=== PATIENT | male | born 1950 | race Caucasian/White ===

== ENCOUNTER 2016-11-01 08:03 | Outpatient (CLI) | payer MEDICARE ==
[2016-11-01 12:44] LABS: #Basophils 0.1 thou/uL (0.0-0.2); #Eosinphils 0.2 thou/uL (0.0-0.7); #Lymphocytes 1.3 thou/uL (1.20-3.40); #Monocytes 0.4 thou/uL (0.11-0.59); #Neutrophils 2.4 thou/uL (1.40-6.50); %Basophils 1.6 % (0.0-1.0); %Eosinophils 4.5 % (0.0-10.0); %Lymphocytes 29.9 % (21.0-51.0); Hematocrit 41.1 % (42.0-52.0); Mean Platelet Volume 5.9 fL (7.4-10.4); Red Blood Cell (RBC) Count 4.21 mill/uL (4.70-6.10); White Blood Cell (WBC) Count 4.4 thou/uL (4.8-10.8)
[2016-11-01 12:59] LABS: ALT (SGPT) 16 U/L (0-55); AST (SGOT) 21 U/L (5-34); Alkaline Phosphatase 53 U/L (40-150); Anion Gap 18 mmol/L (10-20); BUN (Urea Nitrogen) 10 mg/dL (8.4-25.7); Bilirubin, Direct 0.2 mg/dL (0.1-0.3); Bilirubin, Total 0.6 mg/dL (0.2-1.2); Calc. Creatinine Clearance 0 mL/min (70-130); Calcium 9.1 mg/dL (7.8-10.44); Carbon Dioxide 23 mmol/L (23-31); Chloride 98 mmol/L (98-107); Estimated GFR-MDRD Greater than 90; LDL Cholesterol, Calculated 123 mg/dL; Protein, Total 7.1 g/dL (5.8-8.1)
== END 2016-11-01 08:04 ==
LOC: NAVSJIPCSP 08:03
PROVIDERS: ATTEND Family Medicine
DX: J30.9 Allergic rhinitis, unspecified (principal); J32.9 Chronic sinusitis, unspecified; G62.9 Polyneuropathy, unspecified; I10 Essential (primary) hypertension; R25.1 Tremor, unspecified; Z79.899 Other long term (current) drug therapy
CPT/HCPCS: 36415; 80048; 80061; 80076; 83036; 84443; 85025

== ENCOUNTER 2017-03-05 09:19 | Outpatient (CLI) | payer MEDICARE ==
[2017-03-05 12:01] LABS: #Basophils 0.1 thou/uL (0.0-0.2); #Eosinphils 0.3 thou/uL (0.0-0.7); #Lymphocytes 1.3 thou/uL (1.20-3.40); #Monocytes 0.4 thou/uL (0.11-0.59); #Neutrophils 3.9 thou/uL (1.40-6.50); %Basophils 0.9 % (0.0-1.0); %Eosinophils 4.8 % (0.0-10.0); %Lymphocytes 21.5 % (21.0-51.0); %Monocytes 6.6 % (0.0-10.0); %Neutrophils 66.2 % (42.0-75.0); Hemoglobin 14.2 g/dL (14.0-18.0); Mean Corpuscular HGB CONC 33.4 g/dL (32.0-36.0); Mean Corpuscular Hemoglobin 32.2 pg (27.0-31.0); Mean Corpuscular Volume 96.7 fl (80.0-94.0); Mean Platelet Volume 5.5 fL (7.4-10.4); Platelet Count 227 thou/uL (130-400); RBC Distribution Width 12.6 % (11.5-14.5); Red Blood Cell (RBC) Count 4.41 mill/uL (4.70-6.10); White Blood Cell (WBC) Count 5.9 thou/uL (4.8-10.8)
[2017-03-05 12:53] LABS: Thyroid Stimulating Hormone 1.9849 uIU/mL (0.35-4.94)
[2017-03-05 13:08] LABS: ALT (SGPT) 14 U/L (8-55); AST (SGOT) 18 U/L (5-34); Albumin 4.2 g/dL (3.4-4.8); Alkaline Phosphatase 60 U/L (40-150); Anion Gap 17 mmol/L (10-20); BUN (Urea Nitrogen) 10 mg/dL (8.4-25.7); Bilirubin, Direct 0.2 mg/dL (0.1-0.3); Bilirubin, Total 0.7 mg/dL (0.2-1.2); Calc. Creatinine Clearance 0 mL/min (70-130); Carbon Dioxide 24 mmol/L (23-31); Cardiac Risk 3.5 (Less than 4.5); Chloride 101 mmol/L (98-107); Cholesterol 195 mg/dl (< 200 Desired); Estimated GFR-MDRD Greater than 90; Glucose 83 mg/dL (80-115); HDL Cholesterol 55 mg/dL (>60 Neg Risk); LDL Cholesterol, Calculated 119 mg/dL; Potassium 4.3 mmol/L (3.5-5.1); Protein, Total 6.7 g/dL (5.8-8.1); Sodium 138 mmol/L (136-145); Triglycerides 107 mg/dL (Less than 150)
[2017-03-05 18:07] LABS: Hep C IgG Ab Non-Reactive (NonReactive); Hep C Index 0.14 S/CO (0-0.79)
== END 2017-03-05 09:20 | disposition home or self-care (01) ==
LOC: NAVSJIPCSP 09:19
PROVIDERS: ATTEND Family Medicine
DX: G62.9 Polyneuropathy, unspecified (principal); I10 Essential (primary) hypertension; J30.9 Allergic rhinitis, unspecified; K30 Functional dyspepsia; R25.1 Tremor, unspecified; Z79.899 Other long term (current) drug therapy
CPT/HCPCS: 36415; 80048; 80061; 80076; 83036; 84443; 85025; 86803

== ENCOUNTER 2017-06-11 16:46 | Emergency (ER) | payer MEDICARE ==
--- NOTE | 2017-06-11 20:14 | RAD ---
TWO VIEWS LEFT TIBIA AND FIBULA: 06/11/17 HISTORY: 66-year-old with history of swelling left lower leg after fall. AP and lateral views of the left tibia and fibula demonstrates a left knee arthroplasty. No evidence of fractures, subluxations, or bony lesions seen. IMPRESSION: Unremarkable AP and lateral views left tibia and fibula. There does appear to be anterior soft tissu e mid tibial hematoma present. POS: [facility]
== END 2017-06-11 18:08 | disposition home or self-care (01) ==
LOC: NAV ERS 16:46
DX: S80.12XA Contusion of left lower leg, initial encounter (principal); M54.9 Dorsalgia, unspecified; G89.29 Other chronic pain; I10 Essential (primary) hypertension; Z79.899 Other long term (current) drug therapy; Z96.652 Presence of left artificial knee joint; Z96.642 Presence of left artificial hip joint; W01.198A Fall on same level from slipping, tripping and stumbling with subsequent striking against other object, initial encounter

== ENCOUNTER 2018-07-29 08:08 | Outpatient (CLI) | payer MEDICARE ==
[2018-07-29 11:52] LABS: %Lymphocytes 34.5 % (21.0-51.0); Hemoglobin 12.3 g/dL (14.0-18.0); Mean Corpuscular HGB CONC 33.9 g/dL (32.0-36.0); Mean Corpuscular Hemoglobin 32.2 pg (27.0-31.0); Mean Platelet Volume 5.6 fL (7.4-10.4); Platelet Count 332 thou/uL (130-400); RBC Distribution Width 13.2 % (11.5-14.5); Red Blood Cell (RBC) Count 3.83 mill/uL (4.70-6.10); White Blood Cell (WBC) Count 9.2 thou/uL (4.8-10.8)
[2018-07-29 11:53] LABS: #Basophils 0.1 thou/uL (0.0-0.2); #Eosinphils 0.1 thou/uL (0.0-0.7); #Lymphocytes 3.2 thou/uL (1.20-3.40); #Monocytes 0.6 thou/uL (0.11-0.59); #Neutrophils 5.3 thou/uL (1.40-6.50); %Basophils 0.7 % (0.0-1.0); %Eosinophils 0.9 % (0.0-10.0)
== END 2018-07-29 08:09 | disposition home or self-care (01) ==
LOC: NAV LAB 08:08
PROVIDERS: ATTEND Family Medicine
DX: J01.10 Acute frontal sinusitis, unspecified (principal)
CPT/HCPCS: 85025

== ENCOUNTER 2019-04-29 10:31 | Outpatient (CLI) | payer MEDICARE ==
--- NOTE | 2019-04-29 12:37 | RAD ---
LUMBAR SPINE 4 VIEWS: Date: 04/29/19 HISTORY: Lumbar degenerative disc disease. Low back pain. FINDINGS: Lateral views obtained in neutral, flexion, and extension position. Moderate degenerative changes lumbar spine. Degenerative disc changes at all levels. The disc narrowi ng is most prominent at L5-S1 and at the L2-3 level. Facet hypertrophy is seen throughout. Osteophyte s lumbar vertebra. Slight posterolisthesis at L2-3. No change in alignment with flexion or extension. IMPRESSION: There are moderate degenerative changes of the lumbar spine as described. POS: OFF
== END 2019-04-29 10:32 | disposition home or self-care (01) ==
LOC: NAV RAD 10:31
PROVIDERS: ATTEND Nurse Practitioner Family
DX: M51.36 Other intervertebral disc degeneration, lumbar region (principal); M47.816 Spondylosis without myelopathy or radiculopathy, lumbar region
CPT/HCPCS: 72120

== ENCOUNTER 2019-09-17 03:18 | Emergency (ER) | payer MEDICARE ==
[2019-09-17 03:45] LABS: #Basophils 0.1 thou/uL (0.0-0.2); #Eosinphils 0.1 thou/uL (0.0-0.7); #Lymphocytes 1.6 thou/uL (1.20-3.40); #Monocytes 0.7 thou/uL (0.11-0.59); #Neutrophils 6.3 thou/uL (1.40-6.50); %Basophils 0.8 % (0.0-1.0); %Eosinophils 1.5 % (0.0-10.0); %Lymphocytes 17.9 % (21.0-51.0); %Monocytes 7.6 % (0.0-10.0); %Neutrophils 72.2 % (42.0-75.0); Hemoglobin 11.5 g/dL (14.0-18.0); Mean Corpuscular HGB CONC 33.9 g/dL (32.0-36.0); Mean Corpuscular Hemoglobin 31.8 pg (27.0-31.0); Mean Corpuscular Volume 93.7 fL (78.0-98.0); Mean Platelet Volume 5.7 fL (7.4-10.4); Platelet Count 412 thou/uL (130-400); RBC Distribution Width 11.7 % (11.5-14.5); Red Blood Cell (RBC) Count 3.61 mill/uL (4.70-6.10); White Blood Cell (WBC) Count 8.8 thou/uL (4.8-10.8)
[2019-09-17 03:55] LABS: ALT (SGPT) 22 U/L (8-55); AST (SGOT) 19 U/L (5-34); Albumin 4.2 g/dL (3.4-4.8); Alkaline Phosphatase 57 U/L (40-110); Anion Gap 16 mmol/L (10-20); BUN (Urea Nitrogen) 11 mg/dL (8.4-25.7); Bilirubin, Total 0.3 mg/dL (0.2-1.2); Calc. Creatinine Clearance 0 mL/min (70-130); Calcium 10.1 mg/dL (7.8-10.44); Carbon Dioxide 26 mmol/L (23-31); Chloride 87 mmol/L (98-107); Estimated GFR-MDRD Greater than 90; Globulin 2.5 g/dL (2.4-3.5); Glucose 95 mg/dL (80-115); Protein, Total 6.7 g/dL (5.8-8.1); Sodium 125 mmol/L (136-145)
[2019-09-17] MEDS ORDERED: Enoxaparin Sodium 80 MG/0.8 ML SYRINGE ONE (04:03)
[2019-09-17] MEDS ORDERED: Morphine 4 MG/ML VIAL ONE (04:14)
[2019-09-17] MEDS ORDERED: Pantoprazole 40 MG VIAL ONE (04:15)
--- NOTE | 2019-09-17 08:47 | RAD ---
CHEST 1 VIEW: HISTORY: Abdominal pain and bloating for 5 days. COMPARISON: 08/11/2018. FINDINGS: Minimal stable increased markings bilaterally with slight blunting of the left costophrenic angle. O ld granulomatous disease. No confluent pneumonia, overt edema, or pleural effusion. IMPRESSION: Stable chronic changes. POS: OFF
== END 2019-09-17 04:33 | disposition short-term general hospital (02) ==
LOC: NAV ERS 03:18
DX: I24.9 Acute ischemic heart disease, unspecified (principal); I10 Essential (primary) hypertension; Z79.899 Other long term (current) drug therapy; Z79.52 Long term (current) use of systemic steroids
CPT/HCPCS: 71045; 80053; 83880; 84484; 85025; 93005; 94760; 96372; 96374; 96375; C9113; J1650; J2270

== ENCOUNTER 2019-12-03 01:37 | Emergency (ER) | payer MEDICARE ==
[2019-12-03 02:29] LABS: #Basophils 0.1 thou/uL (0.0-0.2); #Eosinphils 0.1 thou/uL (0.0-0.7); #Lymphocytes 1.8 thou/uL (1.20-3.40); #Monocytes 0.3 thou/uL (0.11-0.59); #Neutrophils 1.9 thou/uL (1.40-6.50); %Basophils 2.5 % (0.0-1.0); %Eosinophils 2.9 % (0.0-10.0); %Lymphocytes 42.8 % (21.0-51.0); %Monocytes 7.8 % (0.0-10.0); %Neutrophils 44.1 % (42.0-75.0); ALT (SGPT) 16 U/L (8-55); AST (SGOT) 20 U/L (5-34); Albumin 3.4 g/dL (3.4-4.8); Alkaline Phosphatase 63 U/L (40-110); Anion Gap 15 mmol/L (10-20); BUN (Urea Nitrogen) 6 mg/dL (8.4-25.7); Bilirubin, Total 0.2 mg/dL (0.2-1.2); Calc. Creatinine Clearance 0 mL/min (70-130); Calcium 8.1 mg/dL (7.8-10.44); Carbon Dioxide 28 mmol/L (23-31); Chloride 92 mmol/L (98-107); Estimated GFR-MDRD Greater than 90; Globulin 2.5 g/dL (2.4-3.5); Glucose 90 mg/dL (83-110); Hemoglobin 9.1 g/dL (14.0-18.0); Mean Corpuscular HGB CONC 31.6 g/dL (32.0-36.0); Mean Corpuscular Volume 88.7 fL (78.0-98.0); Mean Platelet Volume 5.8 fL (7.4-10.4); Platelet Count 318 thou/uL (130-400); Potassium 3.7 mmol/L (3.5-5.1); Protein, Total 5.9 g/dL (5.8-8.1); RBC Distribution Width 13.5 % (11.5-14.5); Red Blood Cell (RBC) Count 3.26 mill/uL (4.70-6.10); Sodium 131 mmol/L (136-145); White Blood Cell (WBC) Count 4.2 thou/uL (4.8-10.8)
[2019-12-03] MEDS ORDERED: Aspirin Chewable 81 MG TAB ONE (02:40)
[2019-12-03 02:49] LABS: CKMB 0.6 ng/mL (0-6.6)
--- NOTE | 2019-12-03 07:46 | RAD ---
RADIOGRAPH CHEST 1 VIEW: HISTORY: A 69-year-old male with chest pain, chest tightness. FINDINGS: There are no air space densities, pulmonary edema, pneumothorax, or cardiomegaly. The lateral costop hrenic angles are sharp. IMPRESSION: No acute cardiopulmonary findings. jn [] POS: JIN
== END 2019-12-03 03:04 | disposition home or self-care (01) ==
LOC: NAV ERS 01:37
DX: R07.9 Chest pain, unspecified (principal); I10 Essential (primary) hypertension; I25.2 Old myocardial infarction; Z79.899 Other long term (current) drug therapy
CPT/HCPCS: 36415; 71045; 80053; 82553; 83880; 84484; 85025; 93005; 94760

== ENCOUNTER 2020-01-25 16:42 | Inpatient (IN) | payer MEDICARE ==
[2020-01-25] MEDS: Sucralfate 1 GM TAB PO SCH (20:30)
[2020-01-25] MEDS: HYDROcodone/Acetaminophen 5/325 mg Tablet PO PRN (20:31)
[2020-01-25] MEDS: Atorvastatin Calcium 40 MG TAB PO SCH (20:33)
[2020-01-25] MEDS: Dicyclomine 10 MG CAP PO SCH (20:33)
[2020-01-25] MEDS: Carvedilol 25 MG TAB PO SCH (20:33)
[2020-01-26] MEDS: HYDROcodone/Acetaminophen 5/325 mg Tablet PO PRN ×3 (02:17→18:30)
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
[2020-01-26 05:53] LABS: #Basophils 0.1 thou/uL (0.0-0.2); #Eosinphils 0.6 thou/uL (0.0-0.7); #Lymphocytes 1.2 thou/uL (1.20-3.40); #Monocytes 0.5 thou/uL (0.11-0.59); #Neutrophils 4.9 thou/uL (1.40-6.50); %Basophils 1.3 % (0.0-1.0); %Eosinophils 8.2 % (0.0-10.0); %Lymphocytes 16.8 % (21.0-51.0); %Monocytes 7.1 % (0.0-10.0); %Neutrophils 66.6 % (42.0-75.0); Hemoglobin 8.4 g/dL (14.0-18.0); Hypochromia SLIGHT = 6-15 cells (100X) (0-5/hpf); MDiff Complete? YES; Mean Corpuscular HGB CONC 30.8 g/dL (32.0-36.0); Mean Corpuscular Hemoglobin 28.1 pg (27.0-31.0); Mean Corpuscular Volume 91.3 fL (78.0-98.0); Mean Platelet Volume 6.4 fL (7.4-10.4); Platelet Count 397 thou/uL (130-400); Poikilocytosis MODERATE=16-30 cells (100X) (0-5/hpf); RBC Distribution Width 20.6 % (11.5-14.5); Red Blood Cell (RBC) Count 2.97 mill/uL (4.70-6.10); Target Cells SLIGHT = 2-5 cells (100X) (0-1/hpf); White Blood Cell (WBC) Count 7.4 thou/uL (4.8-10.8)
[2020-01-26 06:01] LABS: ALT (SGPT) 23 U/L (8-55); AST (SGOT) 20 U/L (5-34); Albumin 2.5 g/dL (3.4-4.8); Alkaline Phosphatase 241 U/L (40-110); Anion Gap 15 mmol/L (10-20); BUN (Urea Nitrogen) 27 mg/dL (8.4-25.7); Bilirubin, Total 0.5 mg/dL (0.2-1.2); Calc. Creatinine Clearance 137 mL/min (70-130); Calcium 8.1 mg/dL (7.8-10.44); Carbon Dioxide 21 mmol/L (23-31); Chloride 105 mmol/L (98-107); Estimated GFR-MDRD Greater than 90; Globulin 3.3 g/dL (2.4-3.5); Glucose 101 mg/dL (83-110); Potassium 4.1 mmol/L (3.5-5.1); Protein, Total 5.8 g/dL (5.8-8.1); Sodium 137 mmol/L (136-145)
[2020-01-26] MEDS: Carvedilol 25 MG TAB PO SCH ×2 (08:26→21:12)
[2020-01-26] MEDS: Lisinopril 5 MG TAB PO SCH (08:26)
[2020-01-26] MEDS: Pantoprazole 40 MG GRANULES PACKET PO SCH ×2 (08:26→21:13)
[2020-01-26] MEDS: Sucralfate 1 GM TAB PO SCH ×3 (08:26→21:12)
[2020-01-26] MEDS: Dicyclomine 10 MG CAP PO SCH ×3 (08:27→21:12)
[2020-01-26] MEDS: Furosemide 20 MG TAB PO SCH (08:27)
[2020-01-26 09:35] LABS: Bilirubin Negative (Negative); Blood, Urine Negative (Negative); Clarity Clear (Clear); Glucose, Urine (Dipstick) Negative (Negative); Leukocyte Negative (Negative); Nitrite Negative (Negative); Protein, Urine (Dipstick) Negative (Neg-Trace)
[2020-01-26 10:25] LABS: Bacteria/HPF None Seen HPF (None Seen); RBC/HPF 0-3 HPF (0-3); WBC/HPF 0-3 HPF (0-3)
[2020-01-26] MEDS: FAT EMULSION IV SCH (14:40)
[2020-01-26] MEDS: [UNRECOGNIZED DRUG - OTHER] IV SCH (14:40)
[2020-01-26] MEDS: SODIUM ACETATE IV SCH (14:40)
[2020-01-26] MEDS: SODIUM CHLORIDE IV SCH (14:40)
--- NOTE | 2020-01-26 19:48 | PRG ---
DATE OF SERVICE: This is a 69-year-old white male, who was transferred to [facility] after being in the hospital approximately 1 to 2 months at [place]. The patient was transferred here after multiple problems with abdominal pain with perforated viscus, CPR secondary to asystole, multiple rib fractures secondary to CPR with pneumothorax, and inability to absorb food through his jejunostomy tube. The patient is transferred here on TPN to increase his strength and stamina, so he can undergo in 3 to 4 months a gastric outlet obstruction surgery to repair that problem. SUBJECTIVE: The patient states he is actually doing very well and feeling better. He would like to have something to eat, but he knows his TPN is what he is going to have. he is swallowing some pills. OBJECTIVE: VITAL SIGNS: Today reveal blood pressure this morning 111/60, pulse 82 to 84, respirations 18 to 20, O2 saturation 96% on room air, and T-max 98.1. GENERAL: This is a well-developed, well-nourished, pleasant white male, in no apparent distress at this time. HEENT: Reveals normocephalic and nontraumatic cranium. Pupils are equally round and reactive. Extraocular movements are intact. Nose and throat are slightly dry. NECK: Supple without masses, nodes, or bruits. CHEST: Clear to auscultation. Stout catheter noted in the right upper chest wall. HEART: Reveals a regular rate and rhythm without murmurs, gallops, or rubs. ABDOMEN: Soft. Jejunostomy tube, which is capped, is in the lower left quadrant. Kramer catheter still in place. Normal bowel sounds are noted. No rebound or guarding is noted today. No CVA tenderness is noted. : Reveals Kramer catheter in place. EXTREMITIES: Reveal no clubbing, cyanosis, or edema. ASSESSMENT: 1. Multiple recent surgeries with poor oral intake and gastric outlet obstruction resulting in significant weight loss and severe malnutrition. 2. Hypertension. 3. History of coronary artery disease. 4. Diffuse diverticulosis with extremely friable bowel. 5. Low back pain, long term acute care registered nurse. 6. Allergic rhinitis. 7. Neuropathy. 8. Anxiety and depressive disorder. 9. Arthritis. 10. Status post CPR with five fractured ribs and pneumothorax. 11. Generalized weakness. 12. Multiple procedures. PLAN: 1. Continue to supply the patient with current TPN. 2. Continue wound care with irrigating wound VAC. 3. No oral intake at this time. 4. No enteral nutrition through his jejunostomy tube and it should not be started. 5. Appointment with Dr. Lema in approximately 3 weeks. 6. Continue present course of therapy 3 to 4 months from recent surgery, then possibly address his gastric outlet obstruction with surgery. 7. Continue to follow closely. Job ID: [id number]
[2020-01-26] MEDS: Atorvastatin Calcium 40 MG TAB PO SCH (21:12)
[2020-01-27] MEDS: HYDROcodone/Acetaminophen 5/325 mg Tablet PO PRN ×4 (04:12→23:50)
[2020-01-27 06:01] LABS: ALT (SGPT) 22 U/L (8-55); AST (SGOT) 23 U/L (5-34); Albumin 2.5 g/dL (3.4-4.8); Alkaline Phosphatase 237 U/L (40-110); Anion Gap 13 mmol/L (10-20); BUN (Urea Nitrogen) 31 mg/dL (8.4-25.7); Bilirubin, Total 0.6 mg/dL (0.2-1.2); Calc. Creatinine Clearance 122 mL/min (70-130); Carbon Dioxide 23 mmol/L (23-31); Chloride 105 mmol/L (98-107); Estimated GFR-MDRD Greater than 90; Globulin 3.3 g/dL (2.4-3.5); Glucose 119 mg/dL (83-110); Magnesium 1.8 mg/dL (1.6-2.6); Phosphorus 4.5 mg/dL (2.3-4.7); Potassium 3.9 mmol/L (3.5-5.1); Protein, Total 5.8 g/dL (5.8-8.1); Sodium 137 mmol/L (136-145)
[2020-01-27 06:05] LABS: #Basophils 0.1 thou/uL (0.0-0.2); #Eosinphils 0.8 thou/uL (0.0-0.7); #Lymphocytes 0.8 thou/uL (1.20-3.40); #Monocytes 0.4 thou/uL (0.11-0.59); #Neutrophils 5.8 thou/uL (1.40-6.50); %Lymphocytes 10.8 % (21.0-51.0); %Monocytes 4.7 % (0.0-10.0); %Neutrophils 73.5 % (42.0-75.0); Hypochromia SLIGHT = 6-15 cells (100X) (0-5/hpf); MDiff Complete? YES; Mean Corpuscular HGB CONC 30.7 g/dL (32.0-36.0); Mean Corpuscular Hemoglobin 27.9 pg (27.0-31.0); Mean Corpuscular Volume 90.9 fL (78.0-98.0); Mean Platelet Volume 6.4 fL (7.4-10.4); Ovalocytes MODERATE= 6-15 cells (100X) (0-1/hpf); Platelet Count 395 thou/uL (130-400); Platelet Morphology Comment Appears Increased; RBC Distribution Width 20.1 % (11.5-14.5); Red Blood Cell (RBC) Count 2.87 mill/uL (4.70-6.10); Stomatocytes SLIGHT = 2-5 cells (100X) (0-1/hpf); Target Cells SLIGHT = 2-5 cells (100X) (0-1/hpf); Tear Drops SLIGHT = 2-5 cells (100X) (0-1/hpf); White Blood Cell (WBC) Count 7.8 thou/uL (4.8-10.8)
[2020-01-27] MEDS: Dicyclomine 10 MG CAP PO SCH ×3 (09:10→20:51)
[2020-01-27] MEDS: Sucralfate 1 GM TAB PO SCH ×3 (09:10→20:52)
[2020-01-27] MEDS: Furosemide 20 MG TAB PO SCH (09:11)
[2020-01-27] MEDS: Pantoprazole 40 MG GRANULES PACKET PO SCH ×2 (09:11→20:52)
[2020-01-27] MEDS: Lisinopril 5 MG TAB PO SCH (09:11)
[2020-01-27] MEDS: Carvedilol 25 MG TAB PO SCH ×2 (09:11→20:51)
[2020-01-27] MEDS: SODIUM CHLORIDE IV SCH (14:28)
[2020-01-27] MEDS: [UNRECOGNIZED DRUG - OTHER] IV SCH (14:28)
[2020-01-27] MEDS: SODIUM ACETATE IV SCH (14:28)
[2020-01-27] MEDS: FAT EMULSION IV SCH (14:28)
[2020-01-27] MEDS ORDERED: Sodium Chloride 0.9% 10 ML ONE (14:38)
--- NOTE | 2020-01-27 20:50 | PRG ---
DATE OF SERVICE: 01/27/2020 Mr. Hillman is a 69-year-old white male, who presented to the hospital 1 to 2 months ago with multiple problems including abdominal pain and perforated viscus. He was taken to surgical suite and had surgery done and in postop, had asystole and CPR, which fractured multiple ribs secondary to CPR. He developed a pneumothorax and was unable to absorb jejunostomy feeding tube. Eventually, had TPN, Stout catheter placed and TPN was started. This to increase his strength and stamina. He is transferred here because of gastric outlet obstruction and unable to keep any foods down. He is here for physical therapy and occupational therapy and nutritional encouragement. SUBJECTIVE: The patient states he felt a lot better today than did yesterday, but he was kind of puny and weak this morning. He is only able to stand for one time and then had to sit down. The rest time, he has been in the wheelchair, wheeling himself around, which is much improved over previously. OBJECTIVE: VITAL SIGNS: Today reveal blood pressure 105/57, pulse 81 to 84, respirations 20, O2 saturation 96% to 97% on room air, and T-max 97.6. GENERAL: This is a well-developed, very thin white male, in no apparent distress at this time. He is actually much more alert and talkative and feeling better. HEENT: Reveals normocephalic and nontraumatic cranium. Pupils are equally round and reactive. Extraocular movements are intact. Nose and throat are slightly moist today. NECK: Supple without masses, nodes, or bruits. CHEST: Clear to auscultation. Stout catheter in right upper chest wall is noted. No rales, rhonchi, wheezes, or cough is noted. HEART: Reveals a regular rate and rhythm without murmurs, gallops, or rubs. ABDOMEN: Soft, scaphoid, nontender without organomegaly. Normal bowel sounds are noted in all 4 quadrants. No rebound or guarding is noted. Jejunostomy tube is noted in the left lower quadrant. GENITOURINARY: Deferred except for Kramer catheter noted in place. EXTREMITIES: Reveal no clubbing, cyanosis, or edema. ASSESSMENT: 1. Multiple surgeries with poor nutritional status and severe malnutrition, couple of gastric outlet obstruction. 2. Hypertension. 3. History of coronary artery disease. 4. Diffuse diverticulosis with extremely friable bowel. 5. Low back pain, long-term. 6. Allergic rhinitis. 7. Neuropathy. 8. Anxiety and depressive disorder. 9. Arthritis. 10. Status post CPR with five fractured ribs and pneumothorax. 11. Generalized weakness. 12. Multiple procedures. PLAN: 1. Continue to supply the patient with current TPN. 2. Continue wound care with irrigating wound VAC. 3. No oral intake is noted at this time. 4. No enteral nutrition through his jejunostomy tube and it should not be started. 5. Follow up with Dr. Lema in about 3 weeks, which is about February 16 or the end of the month. 6. Continue present course of therapy 3 to 4 months from recent surgery with possible addressing his gastric outlet obstruction with surgery at that time. 7. Continue to follow closely. 8. The patient's lab today was stable or slightly improved. Job ID: [id number]
[2020-01-27] MEDS: Atorvastatin Calcium 40 MG TAB PO SCH (20:52)
[2020-01-28] MEDS: Ondansetron ODT 4 MG TAB PO PRN (00:10)
[2020-01-28] MEDS: Sucralfate 1 GM TAB PO SCH ×3 (08:41→20:44)
[2020-01-28] MEDS: Carvedilol 25 MG TAB PO SCH ×2 (08:41→20:45)
[2020-01-28] MEDS: Dicyclomine 10 MG CAP PO SCH ×3 (08:41→20:44)
[2020-01-28] MEDS: Lisinopril 5 MG TAB PO SCH (08:41)
[2020-01-28] MEDS: Furosemide 20 MG TAB PO SCH (08:42)
[2020-01-28] MEDS: Pantoprazole 40 MG GRANULES PACKET PO SCH ×2 (08:42→20:45)
[2020-01-28] MEDS: HYDROcodone/Acetaminophen 5/325 mg Tablet PO PRN ×3 (09:27→22:34)
[2020-01-28] MEDS: FAT EMULSION IV SCH (14:12)
[2020-01-28] MEDS: SODIUM CHLORIDE IV SCH (14:12)
[2020-01-28] MEDS: [UNRECOGNIZED DRUG - OTHER] IV SCH (14:12)
[2020-01-28] MEDS: SODIUM ACETATE IV SCH (14:12)
[2020-01-28] MEDS: Atorvastatin Calcium 40 MG TAB PO SCH (20:44)
--- NOTE | 2020-01-28 21:30 | PRG ---
DATE OF SERVICE: 01/27/2020 SUBJECTIVE: Mr. Hillman is a well-developed, well-nourished 69-year-old white male, who presented to the hospital one or two months ago with multiple problems including abdominal pain and perforated viscus. He was taken to surgical suite and had surgery done and postoperatively had asystole and CPR with fractured ribs and he developed pneumothorax. He developed significant malnutrition and poor healing and had to have a jejunostomy tube done, which he did not tolerate well. Eventually, he had to be taken back to surgery because of the gastric outlet obstruction, but he is unable to have significant surgery for that because of the friability of his intestines. Eventually, he was stabilized and transferred to inpatient therapy to skilled unit at [facility] for PT and OT and nutritional support. The patient states every day he feels a little bit stronger. Today, he walked 7 feet, then 17 feet, then 15 feet. This is the first time he has walked. His sugars are all normal at 112 fasting this morning, 124 before lunch, 114 before supper. He states he is feeling better every day. OBJECTIVE: VITAL SIGNS: Reveal blood pressure 107/57, pulse 80 to 83, respirations 18, O2 saturation 96% on room air, and T-max 98.7. GENERAL: This is a well-developed, well-nourished, thin white male, in no apparent distress at this time. HEENT: Reveals normocephalic and nontraumatic cranium. Pupils are equal, round, and reactive. Extraocular movements are intact. Nose and throat are slightly dry. NECK: Supple without masses, nodes, or bruits. CHEST: Clear to auscultation. No rales, rhonchi, or wheezes are heard. HEART: Reveals a regular rate and rhythm without murmurs, gallops, or rubs. ABDOMEN: Soft and nontender without organomegaly. Wound VAC is noted, which seems to be doing well. Jejunostomy tube noted in the left lower quadrant. PICC line catheter noted in the right upper chest wall. : Deferred. Kramer catheter noted to be in place. EXTREMITIES: Reveal no clubbing, cyanosis, or edema. ASSESSMENT: 1. Multiple surgeries with poor nutritional status and severe malnutrition. 2. Gastric outlet obstruction. 3. Hypertension. 4. History of coronary artery disease. 5. Diffuse diverticulosis with extremely friable bowel. 6. Malnutrition, being fed by TPN. 7. Low back pain, long-term. 8. Allergic rhinitis. 9. Neuropathy. 10. Anxiety and depressive disorder. 11. Arthritis. 12. Status post CPR with five fractured ribs and pneumothorax. 13. Generalized weakness. 14. Multiple procedures. PLAN: 1. Continue the patient's current TPN. 2. Wound care with irrigating wound VAC. 3. No oral intake is noted at this time. 4. No enteral nutrition through the jejunostomy tube and it should not be started. 5. Follow up with Dr. Lema in about three weeks, which is February 16. 6. Continue present course of therapy 3 to 4 months from recent surgery with possible addressing his gastric outlet obstruction with surgery at that time. 7. Continue to follow closely. 8. Labs on Saturday. Job ID: [id number]
[2020-01-29] MEDS: Acetaminophen 325 MG TAB PO PRN ×3 (06:39→14:30)
[2020-01-29 07:17] LABS: #Eosinphils 0.7 thou/uL (0.0-0.7); #Lymphocytes 0.6 thou/uL (1.20-3.40); #Monocytes 0.3 thou/uL (0.11-0.59); #Neutrophils 7.6 thou/uL (1.40-6.50); %Basophils 0.5 % (0.0-1.0); %Lymphocytes 6.2 % (21.0-51.0); %Monocytes 3.4 % (0.0-10.0); %Neutrophils 81.9 % (42.0-75.0); Anisocytosis MODERATE=16-30 cells (100X) (0-5/hpf); Hemoglobin 9.1 g/dL (14.0-18.0); Hypochromia SLIGHT = 6-15 cells (100X) (0-5/hpf); MDiff Complete? YES; Mean Corpuscular HGB CONC 30.1 g/dL (32.0-36.0); Mean Corpuscular Hemoglobin 27.9 pg (27.0-31.0); Mean Corpuscular Volume 92.8 fL (78.0-98.0); Mean Platelet Volume 6.5 fL (7.4-10.4); Ovalocytes SLIGHT = 2-5 cells (100X) (0-1/hpf); Platelet Count 358 thou/uL (130-400); Platelet Morphology Comment Appears Adequate; RBC Distribution Width 20.6 % (11.5-14.5); Red Blood Cell (RBC) Count 3.24 mill/uL (4.70-6.10); White Blood Cell (WBC) Count 9.2 thou/uL (4.8-10.8)
[2020-01-29 07:24] LABS: ALT (SGPT) 29 U/L (8-55); AST (SGOT) 34 U/L (5-34); Albumin 2.7 g/dL (3.4-4.8); Alkaline Phosphatase 388 U/L (40-110); Anion Gap 13 mmol/L (10-20); BUN (Urea Nitrogen) 26 mg/dL (8.4-25.7); Bilirubin, Total 0.7 mg/dL (0.2-1.2); CRP (Inflammatory) 1.71 mg/dL (= or < 0.5); Calc. Creatinine Clearance 132 mL/min (70-130); Calcium 8.2 mg/dL (7.8-10.44); Carbon Dioxide 24 mmol/L (23-31); Chloride 105 mmol/L (98-107); Estimated GFR-MDRD Greater than 90; Globulin 3.6 g/dL (2.4-3.5); Glucose 93 mg/dL (83-110); Potassium 4.4 mmol/L (3.5-5.1); Protein, Total 6.3 g/dL (5.8-8.1); Sodium 138 mmol/L (136-145)
--- NOTE | 2020-01-29 08:19 | PRG ---
DATE OF SERVICE: SUBJECTIVE: Mr. Hillman is a well-developed, well-nourished, very pleasant, 69-year-old white male, who presented to the hospital about 1 or 2 months ago with multiple problems including abdominal pain and perforated viscus. He was taken to surgical suite and had a surgical exploration done and found to have perforated viscus and very friable intestines. Unable to have his gastric outlet obstruction repaired because of that. Upon closing, a central line was placed and the patient developed asystole. CPR ensued with fractured ribs and a pneumothorax. Eventually, he was stabilized and transferred to intensive care unit where he had 2 chest tubes placed. He eventually did very well, taken back to the surgery for jejunostomy placement, then found that he just was not able to tolerate jejunostomy tube feedings. TPN was started on the patient. He was stabilized and transferred to [facility]. The patient has actually done very well until early this morning and developed some early chills and had a temperature of 100.2. I ordered lab work on him, including CBC, comp met, lactic acid, CRP, chest x-ray, and urinalysis. The patient states that he has not had a cough, he has not had a urinary frequency, does not have any burning, does not have any abdominal pain. He has no signs or symptoms of an infection. He just is having chills. Repeat temperature at this time is 102.4, so we will draw 2 blood cultures from different sites. His lab just returned which reveals white count of 9200, hemoglobin 9.0, hematocrit 30.1, and platelet count 358,000. No significant shift is noted. No bands are noted. Chemistry reveals sodium of 138, potassium of 4.4, chloride of 105, carbon dioxide of 24, BUN of 26, creatinine of 0.57, and GFR of greater than 90. C-reactive protein is 1.71. Lactic acid 0.9. PHYSICAL EXAMINATION: GENERAL: This is a well-developed, well-nourished, thin white male, who states he just feels cold, and when you uncover him, he shivers. HEENT: Normocephalic and nontraumatic cranium. The pupils are equally round and reactive. Extraocular movements are intact. Nose and throat are slightly dry, but clear. NECK: Supple without masses, nodes or bruits. CHEST: Clear to auscultation. No rales, no rhonchi, no wheezes, and no cough is noted. HEART: Regular rate and rhythm without murmurs, gallops or rubs. ABDOMEN: Soft and nontender. Wound VAC is noted and seems to be doing well. No redness or irritations noted. Jejunostomy tube noted in the left lower quadrant. PICC line noted in the right upper chest, not red, inflamed or draining. GENITOURINARY: Deferred. EXTREMITIES: No clubbing, cyanosis or edema. The left lower extremity is wrapped at the ankle. ASSESSMENT: 1. Chills and fever up to 102, unknown etiology, evaluation in progress. 2. Multiple surgeries, poor nutritional status, and severe malnutrition. 3. Gastric outlet obstruction. 4. Hypertension. 5. History of coronary artery disease. 6. Diffuse diverticulosis with extremely friable bowel, but no abdominal tenderness at this time. 7. Malnutrition, being fed by TPN. 8. Low back pain, long-term. 9. Allergic rhinitis. 10. Neuropathy. 11. Anxiety and depressive disorder. 12. Arthritis. 13. Status post CPR with 5 fractured ribs and pneumothorax in the recent past, probably 2 to 3 weeks ago. 14. Generalized weakness. 15. Multiple procedures. PLAN: 1. The patient is getting 2 blood cultures drawn as we speak from different sites. 2. The patient's lab is still returning, but basically within normal limits. 3. We will repeat his labs tomorrow morning. 4. Wound care with irrigating wound VAC. 5. No oral intake is allowed at this time except for medications. 6. No enteral nutrition noted through the jejunostomy tube and should not be started. 7. Follow up with Dr. Lema in about 3 weeks around February 16. 8. Continue present course of therapy with 3 to 4 months of TPN and then re-addressing his gastric outlet obstruction with possible surgery at that time. 9. Continue to follow closely. 10. Labs again tomorrow morning. 11. Dr. Arredondo is on-call this weekend starting at noon and I will apprise him of the situation. 12. Continue processing blood cultures from 2 different sites. Job ID: [id number]
[2020-01-29] MEDS: HYDROcodone/Acetaminophen 5/325 mg Tablet PO PRN (08:27)
[2020-01-29] MEDS: Pantoprazole 40 MG GRANULES PACKET PO SCH ×2 (08:28→20:58)
[2020-01-29] MEDS: Furosemide 20 MG TAB PO SCH (08:28)
[2020-01-29] MEDS: Lisinopril 5 MG TAB PO SCH (08:28)
[2020-01-29] MEDS: Dicyclomine 10 MG CAP PO SCH ×3 (08:28→20:58)
[2020-01-29] MEDS: Carvedilol 25 MG TAB PO SCH ×2 (08:28→20:58)
[2020-01-29] MEDS: Sucralfate 1 GM TAB PO SCH ×3 (08:28→20:58)
[2020-01-29 10:12] LABS: Bilirubin Negative (Negative); Blood, Urine Negative (Negative); Clarity Clear (Clear); Glucose, Urine (Dipstick) Negative (Negative); Leukocyte Negative (Negative); Nitrite Negative (Negative); Protein, Urine (Dipstick) Negative (Neg-Trace)
[2020-01-29] MEDS ORDERED: Sodium Chloride 0.9% 40 ML ONE (10:39)
[2020-01-29 11:16] LABS: RBC/HPF None Seen HPF (0-3)
[2020-01-29 11:17] LABS: Bacteria/HPF 1+ HPF (None Seen); Squamous Epithelial None Seen HPF (0-3); WBC/HPF 0-3 HPF (0-3)
[2020-01-29] MEDS: Vancomycin HCl 1 GM in Sodium Chloride 0.9% 250 ML 250 ML IVPB SCH (11:39)
[2020-01-29] MEDS: Ibuprofen 200 MG TAB PO PRN (11:45)
[2020-01-29] MEDS ORDERED: Piperacillin/Tazobactam 4.5 GM in Sodium Chloride 0.9% 100 ML IVPB SCH (12:45)
[2020-01-29] MEDS: Lidocaine 4% Topical Sol 50 ML BOT TOP PRN (12:59)
[2020-01-29] MEDS: Ondansetron ODT 4 MG TAB PO PRN (13:01)
[2020-01-29 13:23] VITALS: BMI 26.3
[2020-01-29] MEDS: [UNRECOGNIZED DRUG - OTHER] IV SCH (14:01)
[2020-01-29] MEDS: SODIUM ACETATE IV SCH (14:01)
[2020-01-29] MEDS: FAT EMULSION IV SCH (14:01)
[2020-01-29] MEDS: SODIUM CHLORIDE IV SCH (14:01)
--- NOTE | 2020-01-29 19:10 | RAD ---
CHEST ONE VIEW: 01/29/20 HISTORY: Cough, wheezing and fever. COMPARISON: 01/21/20. FINDINGS: Stable catheter projecting over the right hemithorax with the distal tip likely in the right atrium. Normal cardiac silhouette. Atherosclerosis of the aorta. There are pleural and parenchymal changes in the right lung base. Chronic changes in the left lung base. No consolidation or mass. No pneumothora x or acute osseous abnormalities. IMPRESSION: Pleural and parenchymal changes in the right lung base. POS: PPP
[2020-01-29] MEDS: Piperacillin/Tazobactam 4.5 GM in Sodium Chloride 0.9% 100 ML IVPB SCH (19:30)
--- NOTE | 2020-01-29 19:30 | RAD ---
EXAM: ONE VIEW ABDOMEN: 01/29/20 COMPARISON: 01/14/20. HISTORY: Small bowel obstruction. No bowel movement since January 22. FINDINGS: Multiple midline skin ayla noted. Bowel gas pattern is nonspecific. There does appear to be air an d fecal material scattered throughout the colon. There are mildly prominent air filled loops of small bowel. Postsurgical changes in the left iliac wing, acetabulum and left hip are noted. There is a stable radiolucent focus with peripheral increased density in the left hemipelvis. No pneumoperitoneum on this supine projection. IMPRESSION: Nonspecific bowel gas pattern. If there is concern for bowel obstruction, consider abdomen and pelvic CT with oral and IV contrast. POS: PPP
[2020-01-29] MEDS ORDERED: Sodium Chloride 0.9% 10 ML ONE (20:10)
[2020-01-29] MEDS: Atorvastatin Calcium 40 MG TAB PO SCH (20:58)
[2020-01-30] MEDS: Piperacillin/Tazobactam 4.5 GM in Sodium Chloride 0.9% 100 ML IVPB SCH ×5 (00:03→23:08)
[2020-01-30] MEDS: Acetaminophen 325 MG TAB PO PRN (05:36)
[2020-01-30 05:39] LABS: ALT (SGPT) 26 U/L (8-55); AST (SGOT) 34 U/L (5-34); Albumin 2.2 g/dL (3.4-4.8); Alkaline Phosphatase 297 U/L (40-110); Anion Gap 14 mmol/L (10-20); BUN (Urea Nitrogen) 39 mg/dL (8.4-25.7); Bilirubin, Total 0.6 mg/dL (0.2-1.2); Calc. Creatinine Clearance 106 mL/min (70-130); Calcium 7.8 mg/dL (7.8-10.44); Carbon Dioxide 23 mmol/L (23-31); Chloride 106 mmol/L (98-107); Estimated GFR-MDRD Greater than 90; Globulin 3.1 g/dL (2.4-3.5); Glucose 123 mg/dL (83-110); Magnesium 1.8 mg/dL (1.6-2.6); Phosphorus 4.4 mg/dL (2.3-4.7); Potassium 3.5 mmol/L (3.5-5.1); Protein, Total 5.3 g/dL (5.8-8.1); Sodium 139 mmol/L (136-145)
[2020-01-30 05:43] LABS: #Eosinphils 0.3 thou/uL (0.0-0.7); #Lymphocytes 0.4 thou/uL (1.20-3.40); #Monocytes 0.3 thou/uL (0.11-0.59); #Neutrophils 8.8 thou/uL (1.40-6.50); %Basophils 0.3 % (0.0-1.0); %Eosinophils 2.9 % (0.0-10.0); %Lymphocytes 4.2 % (21.0-51.0); %Monocytes 3.2 % (0.0-10.0); %Neutrophils 89.4 % (42.0-75.0); Anisocytosis SLIGHT = 6-15 cells (100X) (0-5/hpf); Hemoglobin 7.7 g/dL (14.0-18.0); Hypochromia SLIGHT = 6-15 cells (100X) (0-5/hpf); MDiff Complete? YES; Mean Corpuscular HGB CONC 31.5 g/dL (32.0-36.0); Mean Corpuscular Hemoglobin 28.4 pg (27.0-31.0); Mean Corpuscular Volume 90.2 fL (78.0-98.0); Mean Platelet Volume 6.6 fL (7.4-10.4); Platelet Count 249 thou/uL (130-400); Platelet Morphology Comment Appears Adequate; RBC Distribution Width 20.2 % (11.5-14.5); Red Blood Cell (RBC) Count 2.69 mill/uL (4.70-6.10); White Blood Cell (WBC) Count 9.9 thou/uL (4.8-10.8)
[2020-01-30] MEDS: HYDROcodone/Acetaminophen 5/325 mg Tablet PO PRN ×2 (09:12→15:14)
[2020-01-30] MEDS: Ibuprofen 200 MG TAB PO PRN (09:12)
[2020-01-30] MEDS: Dicyclomine 10 MG CAP PO SCH ×3 (09:13→20:15)
[2020-01-30] MEDS: Furosemide 20 MG TAB PO SCH (09:14)
[2020-01-30] MEDS: Pantoprazole 40 MG GRANULES PACKET PO SCH (09:14)
[2020-01-30] MEDS: Sucralfate 1 GM TAB PO SCH ×3 (09:14→20:16)
[2020-01-30] MEDS: Carvedilol 25 MG TAB PO SCH ×2 (09:14→20:15)
[2020-01-30] MEDS: Lisinopril 5 MG TAB PO SCH (10:23)
[2020-01-30] MEDS: Vancomycin HCl 1 GM in Sodium Chloride 0.9% 250 ML 250 ML IVPB SCH (11:15)
[2020-01-30] MEDS: [UNRECOGNIZED DRUG - OTHER] IV SCH (13:55)
[2020-01-30] MEDS: SODIUM ACETATE IV SCH (13:55)
[2020-01-30] MEDS: FAT EMULSION IV SCH (13:55)
[2020-01-30] MEDS: SODIUM CHLORIDE IV SCH (13:55)
[2020-01-30] MEDS: Atorvastatin Calcium 40 MG TAB PO SCH (20:15)
[2020-01-30] MEDS: Pseudoephedrine HCl 30 MG TAB PO PRN (20:16)
[2020-01-31] MEDS: HYDROcodone/Acetaminophen 5/325 mg Tablet PO PRN ×3 (02:05→20:21)
[2020-01-31] MEDS: Piperacillin/Tazobactam 4.5 GM in Sodium Chloride 0.9% 100 ML IVPB SCH ×4 (05:06→23:21)
[2020-01-31] MEDS: Furosemide 20 MG TAB PO SCH (09:45)
[2020-01-31] MEDS: Lisinopril 5 MG TAB PO SCH (09:45)
[2020-01-31] MEDS: Sucralfate 1 GM TAB PO SCH ×3 (09:46→20:20)
[2020-01-31] MEDS: Carvedilol 25 MG TAB PO SCH ×2 (09:47→20:20)
[2020-01-31] MEDS: Dicyclomine 10 MG CAP PO SCH ×3 (09:47→20:20)
[2020-01-31] MEDS: Vancomycin HCl 1 GM in Sodium Chloride 0.9% 250 ML 250 ML IVPB SCH (11:00)
--- NOTE | 2020-01-31 12:23 | PRG ---
DATE OF SERVICE: 01/30/2020 SUBJECTIVE: Mr. Hillman is resting in bed and denies any complaints. His fever finally broke. He is tolerating his vancomycin and Zosyn. Blood cultures are positive 2/2 for MRSE and the sensitivities are pending. Urine culture is also growing Pseudomonas and gram-negative wiley. We will await sensitivities. He is tolerating his TPN. OBJECTIVE: VITAL SIGNS: He is afebrile, heart rate is 86, respirations 18, oxygen saturation 93% on room air, and blood pressure 107/53. CARDIOVASCULAR SYSTEM: S1 and S2 plus. RESPIRATORY SYSTEM: Normal vesicular breath sounds. ABDOMEN: Soft and nontender. Bowel sounds heard in all quadrants. Wound VAC in place. EXTREMITIES: Without cyanosis or clubbing. CENTRAL NERVOUS SYSTEM: Generalized weakness. IMPRESSION: 1. Hypertension. 2. Coronary artery disease. 3. Recent cardiac arrest. 4. Gastric outlet obstruction. 5. Methicillin-resistant Staphylococcus epidermidis bacteremia. 6. Possible urinary tract infection. PLAN: 1. Continue TPN. 2. Continue vancomycin and Zosyn. 3. Await urine culture sensitivities. 4. Routine laboratory values. His white count is still normal. 5. DVT and stress ulcer prophylaxis. 6. J-tube care. 7. Decubitus precautions. 8. Discussed with the patient in detail. All questions answered. Job ID: [id number]
--- NOTE | 2020-01-31 12:28 | PRG ---
DATE OF SERVICE: 01/31/2020 SUBJECTIVE: Mr. Hillman is doing the same. No further temperatures. He denies any concerns or questions. Tolerating his TPN. No family at bedside. Discussed with nursing. OBJECTIVE: VITAL SIGNS: He is afebrile, heart rate is 80, respirations 18, oxygen saturation 96% on room air, blood pressure 121/57. CARDIOVASCULAR SYSTEM: S1 and S2 plus. RESPIRATORY SYSTEM: Normal vesicular breath sounds. ABDOMEN: Soft, nontender. Bowel sounds heard in all quadrants. Wound VAC in place. J-tube site is healthy. EXTREMITIES: Without cyanosis or clubbing. Peripheral pulses are palpable. CENTRAL NERVOUS SYSTEM: Generalized weakness. Otherwise, nonfocal. IMPRESSION: 1. Coronary artery disease. 2. Hypertension. 3. Gastric outlet obstruction. 4. Recent cardiac arrest. 5. Malnutrition. 6. Allergic rhinitis. 7. Anxiety and depression. PLAN: 1. Continue current medications. 2. May need to have his IV access removed due to possibility of colonization. 3. Continue vancomycin and Zosyn. 4. TPN. 5. Routine laboratory values tomorrow. 6. J-tube care. 7. DVT and stress ulcer prophylaxis. 8. Decubitus precautions. 9. Dr. Escudero back [facility]. Job ID: [id number]
[2020-01-31] MEDS: SODIUM ACETATE IV SCH (14:03)
[2020-01-31] MEDS: FAT EMULSION IV SCH (14:03)
[2020-01-31] MEDS: SODIUM CHLORIDE IV SCH (14:03)
[2020-01-31] MEDS: [UNRECOGNIZED DRUG - OTHER] IV SCH (14:03)
--- NOTE | 2020-01-31 17:25 | PRG ---
DATE OF SERVICE: 01/30/2020 SUBJECTIVE: Mr. Hillman is up in bed. He is tolerating his TPN. No further fever or chills. His fever broke yesterday. His blood cultures are growing DARLENE. It is from his peripheral site and not from his Stout catheter. Urine culture is growing Pseudomonas and gram-negative rods. Blood cultures positive 2/. I advised nursing that his Stout catheter may need to be removed and most likely is colonized. We will let Dr. Escudero make arrangements come Saturday. The patient is tolerating the vancomycin and Zosyn. OBJECTIVE: VITAL SIGNS: He is afebrile, T-max of 99.7, pulse 76, respirations 20, blood pressure 107/57, oxygen saturation 96% on room air. CARDIOVASCULAR: S1, S2 plus. RESPIRATORY: Normal vesicular breath sounds. ABDOMEN: Soft, nontender. Bowel sounds heard in all quadrants. Wound VAC in place. Jejunostomy tube in the left lower quadrant. EXTREMITIES: Without cyanosis or clubbing. CENTRAL NERVOUS SYSTEM: Generalized weakness. IMPRESSION: 1. MRSE bacteremia. 2. Possible Pseudomonas urinary tract infection. 3. Hypertension. 4. Coronary artery disease. 5. Allergic rhinitis. He states that he normally takes pseudoephedrine when his nose gets stuffed up. PLAN: 1. Continue IV antibiotics. 2. Await urine culture. 3. Continue TPN. 4. Wound VAC. 5. Trial of Zyrtec. 6. Hold off on pseudoephedrine at this time. 7. DVT prophylaxis with PlexiPulses. 8. Decubitus precautions. 9. Stress ulcer prophylaxis. Job ID: [id number]
[2020-01-31] MEDS ORDERED: Piperacillin/Tazobactam 4.5 GM VIAL ONE ×2 (17:39→18:04)
[2020-01-31] MEDS ORDERED: Sodium Chloride 0.9% 100 ML ONE ×2 (17:39→18:05)
[2020-01-31] MEDS ORDERED: Sodium Chloride 0.9% 10 ML ONE (17:50)
[2020-01-31] MEDS: Atorvastatin Calcium 40 MG TAB PO SCH (20:19)
[2020-01-31] MEDS: Pseudoephedrine HCl 30 MG TAB PO PRN (21:45)
[2020-01-31] MEDS ORDERED: Sodium Chloride 0.9% 20 ML ONE (23:22)
[2020-02-01] MEDS: HYDROcodone/Acetaminophen 5/325 mg Tablet PO PRN ×2 (04:25→13:04)
[2020-02-01] MEDS: Piperacillin/Tazobactam 4.5 GM in Sodium Chloride 0.9% 100 ML IVPB SCH ×4 (05:05→23:44)
[2020-02-01 05:27] LABS: Anion Gap 13 mmol/L (10-20); BUN (Urea Nitrogen) 21 mg/dL (8.4-25.7); Calc. Creatinine Clearance 137 mL/min (70-130); Calcium 7.9 mg/dL (7.8-10.44); Carbon Dioxide 25 mmol/L (23-31); Chloride 109 mmol/L (98-107); Estimated GFR-MDRD Greater than 90; Glucose 103 mg/dL (83-110); Potassium 3.5 mmol/L (3.5-5.1); Sodium 143 mmol/L (136-145)
[2020-02-01 05:28] LABS: Anisocytosis SLIGHT = 6-15 cells (100X) (0-5/hpf); Band 17 % (5-11); Eosinophils 14 % (0-10); Hemoglobin 7.9 g/dL (14.0-18.0); Hypochromia SLIGHT = 6-15 cells (100X) (0-5/hpf); Lymphocytes 13 % (21-51); MDiff Complete? YES; Mean Corpuscular HGB CONC 30.7 g/dL (32.0-36.0); Mean Corpuscular Hemoglobin 27.9 pg (27.0-31.0); Mean Platelet Volume 7.1 fL (7.4-10.4); Metamyelocyte 1 % (0-0); Monocytes 1 % (0-10); Neutrophil 54 % (42-75); Platelet Count 241 thou/uL (130-400); Platelet Morphology Comment Appears Adequate; Red Blood Cell (RBC) Count 2.84 mill/uL (4.70-6.10)
[2020-02-01] MEDS: Lisinopril 5 MG TAB PO SCH (09:19)
[2020-02-01] MEDS: Carvedilol 25 MG TAB PO SCH ×2 (09:19→20:55)
[2020-02-01] MEDS: Furosemide 20 MG TAB PO SCH (09:19)
[2020-02-01] MEDS: Dicyclomine 10 MG CAP PO SCH ×3 (09:19→20:55)
[2020-02-01] MEDS: Acetaminophen 325 MG TAB PO PRN ×2 (09:19→18:36)
[2020-02-01] MEDS: Sucralfate 1 GM TAB PO SCH ×3 (09:19→20:55)
[2020-02-01] MEDS: Pseudoephedrine HCl 30 MG TAB PO PRN (09:20)
[2020-02-01 10:47] LABS: Vancomycin, Trough 4.9 ug/mL
[2020-02-01] MEDS: Vancomycin HCl 1 GM in Sodium Chloride 0.9% 250 ML 250 ML IVPB SCH ×2 (13:06→13:47)
--- NOTE | 2020-02-01 13:25 | PRG ---
DATE OF SERVICE: 02/01/2020 SUBJECTIVE: Mr. Hillman is a well-developed, well-nourished 69-year-old white male, who presented to the hospital 1 or 2 months ago with multiple problems, which include abdominal pain. He was found to have a perforated viscus and taken to surgical suite. He was found to have perforated viscus and very friable intestines. He also was found to have gastric outlet obstruction, but he was unable to have that surgery completed because of his deniable medical situation. He was followed by Dr. Noe Lema. Upon closing, they did put a central line in and the patient developed asystole. CPR ensued, in which he had fractured ribs and pneumothorax. Eventually, he was stabilized and transferred to intensive care unit, where he had 2 chest tubes placed. Eventually, he was stabilized again and taken back to surgery for jejunostomy placement, but found that he was unable to tolerate that too. TPN was started through a Stout catheter. He was stabilized and transferred to [facility] for nutritional support, physical therapy, and occupational therapy. The patient actually is doing very well until Saturday morning. When I walked in about 9 o'clock, he was having chills and rigors. We did lab work, which was basically unremarkable. That afternoon, he developed fever by about noon of 103. We did blood cultures x2, urine cultures, and x-rays. He was started on vancomycin and Zosyn. Dr. Stanford saw the patient over the weekend, and the patient defervesced and is actually feeling much better. This morning when I walked in, the patient states he is feeling much better and refusing to take a shower because he would rather have a bed bath. He is also not wanting to do very much therapy. LABORATORY DATA: Reveals white count of 7000 with a hemoglobin 7.9, hematocrit 25.8, platelet count of 241,000, 54 neutrophils, 17 bands, 13 lymphocytes. Chemistry reveals sodium 143, potassium 3.5, chloride 109, carbon dioxide 25 with a BUN of 21, creatinine 0.55, and GFR greater than 90. His sugars are still ranging between 103 and 130. OBJECTIVE: VITAL SIGNS: Today reveal blood pressure 121/57, pulse 74 to 81, respirations 18 to 20, O2 saturation 96% on room air, T-max 98.3. GENERAL: This is a well-developed, well-nourished, thin white male, in no apparent distress at this time. HEENT: Reveals normocephalic and nontraumatic cranium. The pupils are equal, round, and reactive. Extraocular movements are intact. Nose and throat are slightly dry, but clear. NECK: Supple without masses, nodes, or bruits. CHEST: Clear to auscultation. No rales, no rhonchi, and no wheezes are heard. No cough is noted. HEART: Reveals a regular rate and rhythm without murmurs, gallops, or rubs. ABDOMEN: Soft and nontender. Wound VAC noted, seems to be doing well and it is supposed to be changed today. No redness or irritation is noted. Jejunostomy tube is noted in the left lower quadrant. PICC line noted in the right upper quadrant of the chest, not red, inflamed, or draining. GENITOURINARY: Deferred. EXTREMITIES: Reveal no clubbing, cyanosis, or edema. The left lower extremity is still wrapped with the ankle. Microbiology reveals the patient is growing Pseudomonas and Enterobacter in his urine, which is sensitive to Zosyn. Blood cultures x2 were both positive for Staphylococcus epidermidis, which is sensitive to the vancomycin. ASSESSMENT: 1. Sepsis secondary to Pseudomonas and Enterococcus, presently on Zosyn for that and Staphylococcus epidermidis in 2 blood cultures, which may be coming from his catheter. 2. Fever and chills, now resolved with fever up to 102 to 103. 3. Recent multiple surgeries. 4. Poor nutritional status with severe malnutrition. 5. Gastric outlet obstruction. 6. Hypertension. 7. History of coronary artery disease. 8. Diffuse diverticulosis with extremely friable bowel, but no abdominal tenderness. 9. Malnutrition, fed by total parenteral nutrition. 10. Low back pain, which is fpc. 11. Allergic rhinitis. 12. Neuropathy. 13. Anxiety and depressive disorder. 14. Arthritis. 15. Status post cardiopulmonary resuscitation with five fractured ribs and pneumothorax in the recent past. 16. Generalized weakness. PLAN: 1. We will contact Dr. Noe Lema and inform him what is going on. 2. Continue present antibiotics. 3. Repeat labs from this morning are pending. 4. Continue wound care and change wound VAC today. 5. Continue with no oral intake except for medication. 6. Continue with no jejunostomy intake. 7. Continue with TPN. 8. Follow up with Dr. Lema in about 3 weeks. 9. Continue present course. 10. Continue to follow very closely. 11. Labs again tomorrow morning. Job ID: [id number]
[2020-02-01] MEDS: Lidocaine 4% Topical Sol 50 ML BOT TOP PRN (13:58)
[2020-02-01] MEDS: SODIUM ACETATE IV SCH (14:52)
[2020-02-01] MEDS: [UNRECOGNIZED DRUG - OTHER] IV SCH (14:52)
[2020-02-01] MEDS: SODIUM CHLORIDE IV SCH (14:52)
[2020-02-01] MEDS: FAT EMULSION IV SCH (14:52)
[2020-02-01] MEDS: Atorvastatin Calcium 40 MG TAB PO SCH (20:55)
[2020-02-02] MEDS: Vancomycin HCl 1 GM in Sodium Chloride 0.9% 250 ML 250 ML IVPB SCH (00:28)
[2020-02-02] MEDS: Piperacillin/Tazobactam 4.5 GM in Sodium Chloride 0.9% 100 ML IVPB SCH ×2 (05:04→12:20)
--- NOTE | 2020-02-02 09:41 | RAD ---
RADIOGRAPH CHEST 1 VIEW: DATE: 02/02/2020 TIME: 9:22 AM HISTORY: 69-year-old male with dyspnea COMPARISON: 01/29/2020 FINDINGS: There is now greater degree of elevation of right hemidiaphragm. Right IJ central venous catheter rem ains with distal tip in right atrium. Diffuse haziness of the right lung appears slightly worse. Thickening of right apical pleural stripe. No pneumothorax. Diffuse mild interstitial densities throu ghout the left lung have worsened. Probable bilateral pleural effusions unchanged. IMPRESSION: diffuse mild interstitial changes have worsened
[2020-02-02 09:45] LABS: #Basophils 0.1 thou/uL (0.0-0.2); #Eosinphils 0.5 thou/uL (0.0-0.7); #Lymphocytes 0.7 thou/uL (1.20-3.40); #Monocytes 0.5 thou/uL (0.11-0.59); #Neutrophils 5.3 thou/uL (1.40-6.50); %Eosinophils 6.6 % (0.0-10.0); %Lymphocytes 9.8 % (21.0-51.0); %Monocytes 7.3 % (0.0-10.0); %Neutrophils 75.5 % (42.0-75.0); Hemoglobin 7.8 g/dL (14.0-18.0); Mean Corpuscular HGB CONC 30.7 g/dL (32.0-36.0); Mean Corpuscular Hemoglobin 27.8 pg (27.0-31.0); Mean Corpuscular Volume 90.4 fL (78.0-98.0); Mean Platelet Volume 7.7 fL (7.4-10.4); Platelet Count 228 thou/uL (130-400); RBC Distribution Width 20.1 % (11.5-14.5); White Blood Cell (WBC) Count 7.1 thou/uL (4.8-10.8)
[2020-02-02 09:57] LABS: Lactic Acid 1.2 mmol/L (0.5-2.2)
[2020-02-02 10:02] LABS: ALT (SGPT) 30 U/L (8-55); AST (SGOT) 49 U/L (5-34); Albumin 2.5 g/dL (3.4-4.8); Alkaline Phosphatase 419 U/L (40-110); Anion Gap 13 mmol/L (10-20); BUN (Urea Nitrogen) 21 mg/dL (8.4-25.7); Bilirubin, Total 0.5 mg/dL (0.2-1.2); Calc. Creatinine Clearance 125 mL/min (70-130); Calcium 7.9 mg/dL (7.8-10.44); Carbon Dioxide 23 mmol/L (23-31); Chloride 108 mmol/L (98-107); Estimated GFR-MDRD Greater than 90; Globulin 3.4 g/dL (2.4-3.5); Glucose 112 mg/dL (83-110); Potassium 3.2 mmol/L (3.5-5.1); Protein, Total 5.9 g/dL (5.8-8.1); Sodium 141 mmol/L (136-145)
[2020-02-02] MEDS: Sucralfate 1 GM TAB PO SCH (10:04)
[2020-02-02] MEDS: Carvedilol 25 MG TAB PO SCH (10:04)
[2020-02-02] MEDS: Dicyclomine 10 MG CAP PO SCH (10:04)
[2020-02-02] MEDS: Furosemide 20 MG TAB PO SCH (10:04)
[2020-02-02] MEDS: Lisinopril 5 MG TAB PO SCH (10:05)
[2020-02-02] MEDS: HYDROcodone/Acetaminophen 5/325 mg Tablet PO PRN (10:10)
[2020-02-02 12:26] VITALS: BP 117/58; TEMP 97.8
--- NOTE | 2020-02-03 14:15 | DIS ---
DATE OF ADMISSION: 01/25/2020 DATE OF DISCHARGE: 02/02/2020 HOSPITAL COURSE: Mr. Hillman is a 69-year-old white male, who presented to [facility] 1 or 2 months ago with multiple problems which include abdominal pain. He was found to have a perforated viscus and taken to surgical suite. He was found to have very friable intestines and significant gastric outlet obstruction. His surgery included repair of the perforated viscus and some of the areas of the intestines. He had significant malnutrition and was followed by Dr. Noe Lema. They did put in the central line during surgery, and so unfortunately, he developed asystole. CPR was started and successful, but he sustained 5 fractured ribs and pneumothorax. He was transferred to intensive care unit, had 2 chest tubes placed. He was eventually stabilized and taken back to surgical suite for jejunostomy placement. Unfortunately, the patient did not tolerate jejunostomy feedings at all, and then, he had to have a Stout catheter for TPN started. He was stabilized finally and transferred to [facility] for nutritional support, physical therapy, and occupational therapy. The patient actually was doing fairly well until Saturday afternoon when he was having rigors and chills. We did lab work, which was unremarkable. He developed fever of 103 with a blood cultures x2, urine cultures, and x-rays. He was started on vancomycin and Zosyn. Over the weekend, he actually improved after being started on the antibiotics. His urinalysis grew out Pseudomonas and enterobacter, and his blood cultures grew out Staphylococcus epidermidis out of both blood cultures from different places. He was sensitive to the vancomycin and the Zosyn. On Saturday , he was actually doing very well, but this morning when I came in, he had some mental status changes and some increased confusion. He states he was cold and has a low-grade temperature. Laboratories this morning were done, which still revealed a white count of 7000 with a hemoglobin 7.8 and hematocrit 25.3, but now he has 17 bands and a shift. His serum chemistry this morning revealed a sodium 141, potassium 3.2. His GFR was greater than 90. Creatinine was 0.60. Lactic acid was 1.2. I did talk with Dr. Noe Lema about his bacteremia being staphylococcal epidermidis and that we need to change out his line. I also told him that he seemed to be dwindling and doing a little worse and not wanting to participate in therapy. Decision was made to transfer him to [facility] for further evaluation and treatment and consultation from Dr. Daniel along with changing out his central line. MEDICATIONS: The patients medications have been reviewed and a list has been sent with the patient. OBJECTIVE: VITAL SIGNS: This morning revealed a blood pressure 109/62, pulse 80s, respirations 22, temperature 100.3. GENERAL: On physical exam, this is a well-developed, well-nourished 69-year-old white male, in no apparent distress. HEENT: Normocephalic and nontraumatic cranium. Pupils are equally round and reactive. Extraocular movements are intact. Nose and throat are dry. NECK: Supple without masses, nodes, or bruits. CHEST: Reveals no rales, rhonchi, or wheezes. No cough is noted. HEART: Reveals a regular rate and rhythm without murmurs, gallops, or rubs. ABDOMEN: Soft, nontender. Wound VAC noted and the patient states it was changed yesterday, which made him feel so tired. No redness or irritation is noted. Jejunostomy tube in left lower quadrant, which is capped. PICC line in the right upper quadrant is not red, inflamed, or draining. : Deferred. EXTREMITIES: Reveal no clubbing, cyanosis, or edema. Lower extremity, the ankle is still wrapped. NEUROLOGIC: The patient is oriented to person and place, but not time. ASSESSMENT: 1. Bacteremia with Staphylococcus epidermidis out of 2 separate blood cultures sensitive to vancomycin. 2. Urinary tract infection growing Pseudomonas and Enterococcus, presently on Zosyn, which is sensitive. 3. Some chills, low-grade fever this morning noted. 4. Poor nutritional status with severe malnutrition, which is somewhat improved. 5. Gastric outlet obstruction continues. 6. Hypertension. 7. History of coronary artery disease. 8. Diffuse diverticulosis with extremely friable bowel, but no abdominal tenderness. 9. Malnutrition, fed by TPN. 10. Low back pain, which is long-term. 11. Allergic rhinitis. 12. Neuropathy. 13. Anxiety and depressive disorder. 14. Arthritis. 15. Status post CPR with 5 fractured ribs on the right side along with pneumothorax with prior chest tubes x2 in the recent past. 16. Generalized weakness. PLAN: 1. The patient will be transferred to the care of Dr. Noe Lema at [facility]. 2. Continue present medications. 3. Continue present antibiotics. 4. Most likely, we will get a consult from Dr. Daniel. 5. Continue wound care and wound VAC. 6. No oral intake except for medications. 7. No jejunostomy feedings. 8. Continue TPN. 9. Follow up with Dr. Noe Lema on arrival. Job ID: [id number] MTDD
== END 2020-02-02 12:46 | disposition short-term general hospital (02) | DRG 689 ==
LOC: NAV ACUTE 16:42
PROVIDERS: ADMIT Family Medicine; ATTEND Family Medicine
DX: N39.0 Urinary tract infection, site not specified (principal); E43 Unspecified severe protein-calorie malnutrition; K31.1 Adult hypertrophic pyloric stenosis; B95.7 Other staphylococcus as the cause of diseases classified elsewhere; B96.5 Pseudomonas (aeruginosa) (mallei) (pseudomallei) as the cause of diseases classified elsewhere; B95.2 Enterococcus as the cause of diseases classified elsewhere; I10 Essential (primary) hypertension; I25.10 Atherosclerotic heart disease of native coronary artery without angina pectoris; K57.90 Diverticulosis of intestine, part unspecified, without perforation or abscess without bleeding; M54.5 Low back pain; J30.9 Allergic rhinitis, unspecified; F41.9 Anxiety disorder, unspecified; F32.9 Major depressive disorder, single episode, unspecified; M19.90 Unspecified osteoarthritis, unspecified site; Z96.653 Presence of artificial knee joint, bilateral; Z96.643 Presence of artificial hip joint, bilateral; G62.9 Polyneuropathy, unspecified; Z91.011 Allergy to milk products; Z90.49 Acquired absence of other specified parts of digestive tract; Z68.26 Body mass index [BMI] 26.0-26.9, adult
CPT/HCPCS: 36415; 36416; 71045; 74018; 80048; 80053; 80202; 81001; 83605; 83735; 83880; 84100; 84134; 85025; 86140; 87040; 87077; 87086; 87149; 87186; A4217; J1815; J2543; J3370; J3475; J3480; J3490; J7050; Q0162

== ENCOUNTER 2020-02-09 12:23 | Inpatient (IN) | payer MEDICARE ==
[2020-02-09] MEDS ORDERED: HYDROcodone/Acetaminophen 5/325 mg Tablet PO PRN ×4 (14:53→15:04)
[2020-02-09] MEDS ORDERED: diphenhydrAMINE 25 MG CAP PO PRN (14:53)
[2020-02-09] MEDS ORDERED: Acetaminophen 325 MG TAB PO PRN (14:53)
[2020-02-09] MEDS ORDERED: Ondansetron ODT 4 MG TAB PO PRN (14:53)
[2020-02-09] MEDS: HYDROcodone/Acetaminophen 5/325 mg Tablet PO PRN (15:29)
[2020-02-09] MEDS: Carvedilol 25 MG TAB PO SCH (20:53)
[2020-02-09] MEDS: Atorvastatin Calcium 40 MG TAB PO SCH (20:55)
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
[2020-02-09] MEDS ORDERED: SODIUM ACETATE IV SCH (22:00)
[2020-02-09] MEDS ORDERED: POTASSIUM CHLORIDE IV SCH (22:00)
[2020-02-09] MEDS ORDERED: [UNRECOGNIZED DRUG - OTHER] IV SCH (22:00)
[2020-02-09] MEDS ORDERED: SODIUM CHLORIDE IV SCH (22:00)
[2020-02-10 05:15] LABS: #Basophils 0.1 thou/uL (0.0-0.2); #Eosinphils 0.8 thou/uL (0.0-0.7); #Lymphocytes 1.2 thou/uL (1.20-3.40); #Monocytes 0.6 thou/uL (0.11-0.59); #Neutrophils 7.5 thou/uL (1.40-6.50); %Basophils 0.8 % (0.0-1.0); %Lymphocytes 11.6 % (21.0-51.0); %Monocytes 5.7 % (0.0-10.0); %Neutrophils 73.8 % (42.0-75.0); Anisocytosis SLIGHT = 6-15 cells (100X) (0-5/hpf); Hemoglobin 7.9 g/dL (14.0-18.0); Hypochromia MODERATE=16-30 cells (100X) (0-5/hpf); MDiff Complete? YES; Mean Corpuscular HGB CONC 31.3 g/dL (32.0-36.0); Mean Corpuscular Hemoglobin 28.3 pg (27.0-31.0); Mean Corpuscular Volume 90.4 fL (78.0-98.0); Platelet Count 173 thou/uL (130-400); Platelet Morphology Comment Appears Adequate; RBC Distribution Width 20.6 % (11.5-14.5); Red Blood Cell (RBC) Count 2.81 mill/uL (4.70-6.10); White Blood Cell (WBC) Count 10.1 thou/uL (4.8-10.8)
[2020-02-10 05:31] LABS: ALT (SGPT) 29 U/L (8-55); AST (SGOT) 52 U/L (5-34); Albumin 2.4 g/dL (3.4-4.8); Alkaline Phosphatase 290 U/L (40-110); Anion Gap 13 mmol/L (10-20); BUN (Urea Nitrogen) 23 mg/dL (8.4-25.7); Bilirubin, Total 0.5 mg/dL (0.2-1.2); Calc. Creatinine Clearance 0 mL/min (70-130); Calcium 8.5 mg/dL (7.8-10.44); Carbon Dioxide 27 mmol/L (23-31); Chloride 105 mmol/L (98-107); Estimated GFR-MDRD Greater than 90; Globulin 4.4 g/dL (2.4-3.5); Glucose 115 mg/dL (83-110); Potassium 3.6 mmol/L (3.5-5.1); Protein, Total 6.8 g/dL (5.8-8.1); Sodium 141 mmol/L (136-145)
--- NOTE | 2020-02-10 07:38 | PRG ---
DATE OF SERVICE: 02/10/2020 SUBJECTIVE: Mr. Hillman is a well-developed, well-nourished 69-year-old white male who returns to [facility] after having Pseudomonas enterococcus urinary tract infection and Staphylococcus epidermidis bacteremia. He was treated and his antibiotics have now been stopped. He is transferred back here for physical therapy, occupational therapy and to increase his nutritional status. He has a central PICC line in his left arm and is getting TPN. The patient states he is doing very well and had his evaluation yesterday. He is too weak to walk at this time, but hopefully by the time he leaves, he will be walking 300 feet. OBJECTIVE: VITAL SIGNS: This morning reveal blood pressure slightly elevated at 160/77, pulse 85, respirations 22, O2 saturation 94% to 95% on room air, T-max 98.6. LABORATORY DATA: Yesterday revealed white count 10,000 with a hemoglobin of 7.3, hematocrit 25.4, platelet count 173,000. Chemistry reveals sodium 141, potassium 3.6, chloride of 105, carbon dioxide 27, BUN 23, and creatinine 0.53. His albumin still low at 2.4. PHYSICAL EXAMINATION: GENERAL: This is a well-developed, well-nourished, thin, 69-year-old white male, in no apparent distress at this time. He states he slept well last night. HEENT: Reveals normocephalic, nontraumatic cranium. Pupils equally round and reactive. Extraocular movements are intact. Nose and throat are slightly dry. NECK: Supple without masses, nodes, or bruits. CHEST: Clear to auscultation. HEART: Reveals a regular rate and rhythm without murmurs, gallops, or rubs. ABDOMEN: Soft and nontender. Wound VAC has been removed. The patient still has secondary closure by intention. Retention sutures x3 is still in place. Again, no entero-fistula is noted. : Deferred. EXTREMITIES: Reveal no clubbing, cyanosis, or edema. Just weakness. ASSESSMENT: 1. Urinary tract infection with Enterococcus and Pseudomonas, resolved. 2. Staphylococcus epidermidis bacteremia, resolved. 3. Significant malnutrition. 4. PICC line, left arm. 5. Generalized weakness. 6. Hypertension. 7. Coronary artery disease, followed by Dr. Donald. 8. Anxiety and depressive disorder. 9. Generalized weakness. PLANS: 1. Continue with TPN at this time and monitor progress. 2. PICC line flush. 3. Pain management as needed. 4. Stress ulcer prophylaxis. 5. Decubitus precautions. 6. DVT prophylaxis. 7. Continue to monitor the patient's blood pressure closely and adjust medications as needed. 8. Continue Physical Therapy and Occupational Therapy. Job ID: [id number]
[2020-02-10] MEDS: Carvedilol 25 MG TAB PO SCH ×2 (08:59→22:21)
[2020-02-10] MEDS ORDERED: Furosemide 20 MG TAB PO SCH (09:00)
[2020-02-10] MEDS ORDERED: Lisinopril 5 MG TAB PO SCH (09:00)
[2020-02-10] MEDS: HYDROcodone/Acetaminophen 5/325 mg Tablet PO PRN (09:55)
[2020-02-10] MEDS ORDERED: [UNRECOGNIZED DRUG - OTHER] IV SCH (14:00)
[2020-02-10] MEDS ORDERED: SODIUM ACETATE IV SCH (14:00)
[2020-02-10] MEDS ORDERED: POTASSIUM CHLORIDE IV SCH (14:00)
[2020-02-10] MEDS ORDERED: SODIUM CHLORIDE IV SCH (14:00)
[2020-02-10 19:09] LABS: Bilirubin Negative (Negative); Blood, Urine Negative (Negative); Clarity Clear (Clear); Glucose, Urine (Dipstick) Negative (Negative); Leukocyte Negative (Negative); Nitrite Negative (Negative); Protein, Urine (Dipstick) 30 mg/dL (Neg-Trace)
[2020-02-10 20:54] LABS: WBC/HPF 0-3 HPF (0-3)
[2020-02-10 22:15] VITALS: BP 213/103; TEMP 97.2
[2020-02-10] MEDS: Atorvastatin Calcium 40 MG TAB PO SCH (22:21)
--- NOTE | 2020-02-11 09:13 | RAD ---
PORTABLE CHEST: HISTORY: Shortness of breath. COMPARISON: 02/06/2020 exam. FINDINGS: Heart size appears borderline. Increasing density in the right base suggests there is probably some increase to the effusion, althou gh some of this is just technique-related. Pulmonary vessels do appear more engorged than on the jamir or examination. IMPRESSION: Worsening pulmonary vascular engorgement as compared to the prior study. A moderate right-sided pleu ral effusion which may be slightly increased in size. POS: HANG
== END 2020-02-11 02:34 | disposition short-term general hospital (02) | DRG 690 ==
LOC: NAV ACUTE 12:23
PROVIDERS: ADMIT Family Medicine; ATTEND Family Medicine
DX: N39.0 Urinary tract infection, site not specified (principal); E46 Unspecified protein-calorie malnutrition; B96.5 Pseudomonas (aeruginosa) (mallei) (pseudomallei) as the cause of diseases classified elsewhere; B95.2 Enterococcus as the cause of diseases classified elsewhere; I10 Essential (primary) hypertension; G62.9 Polyneuropathy, unspecified; I25.10 Atherosclerotic heart disease of native coronary artery without angina pectoris; F41.9 Anxiety disorder, unspecified; Z96.649 Presence of unspecified artificial hip joint; F32.9 Major depressive disorder, single episode, unspecified; Z90.49 Acquired absence of other specified parts of digestive tract; Z86.010 Personal history of colon polyps; Z95.5 Presence of coronary angioplasty implant and graft; Z91.011 Allergy to milk products
CPT/HCPCS: 36416; 71045; 80053; 81001; 85025; 36415-59; J1815; J3475; J3480; J7620

== ENCOUNTER 2020-02-10 23:08 | Emergency (ER) | payer MEDICARE ==
[2020-02-10] MEDS ORDERED: Ventolin HFA Inhaler 60 PUFF INHALER ONE (23:47)
[2020-02-11] MEDS ORDERED: Furosemide 40 MG/4 ML VIAL ONE (00:29)
[2020-02-11 01:12] LABS: Red Blood Cell (RBC) Count 3.13 mill/uL (4.70-6.10); White Blood Cell (WBC) Count 12.3 thou/uL (4.8-10.8)
[2020-02-11 01:13] LABS: %Lymphocytes 8.1 % (21.0-51.0); %Neutrophils 81.4 % (42.0-75.0); Hemoglobin 8.9 g/dL (14.0-18.0); Manual Diff?? YES; Mean Corpuscular Hemoglobin 28.6 pg (27.0-31.0); Mean Corpuscular Volume 92.2 fL (78.0-98.0); Mean Platelet Volume 8.4 fL (7.4-10.4); Platelet Count 197 thou/uL (130-400); RBC Distribution Width 21.5 % (11.5-14.5)
[2020-02-11 01:14] LABS: #Basophils 0.1 thou/uL (0.0-0.2); #Eosinphils 0.4 thou/uL (0.0-0.7); #Monocytes 0.8 thou/uL (0.11-0.59); %Basophils 0.8 % (0.0-1.0); %Eosinophils 3.6 % (0.0-10.0); %Monocytes 6.1 % (0.0-10.0); Anisocytosis MODERATE=16-30 cells (100X) (0-5/hpf); Hypochromia MODERATE=16-30 cells (100X) (0-5/hpf); MDiff Complete? YES
[2020-02-11 01:15] LABS: Platelet Morphology Comment Appears Adequate
[2020-02-11 01:22] LABS: Bilirubin Negative (Negative); Blood, Urine Negative (Negative); Clarity Clear (Clear); Glucose, Urine (Dipstick) Negative (Negative); Leukocyte Negative (Negative); Nitrite Negative (Negative); Protein, Urine (Dipstick) 100 mg/dL (Neg-Trace)
[2020-02-11 01:23] LABS: Bacteria/HPF None Seen HPF (None Seen); RBC/HPF None Seen HPF (0-3); Squamous Epithelial 0-3 HPF (0-3); WBC/HPF None Seen HPF (0-3)
[2020-02-11 01:37] LABS: BUN (Urea Nitrogen) 25 mg/dL (8.4-25.7); Carbon Dioxide 26 mmol/L (23-31); Chloride 104 mmol/L (98-107); Potassium 4.1 mmol/L (3.5-5.1); Sodium 141 mmol/L (136-145)
[2020-02-11 01:38] LABS: Bilirubin, Total 0.6 mg/dL (0.2-1.2); Calcium 8.9 mg/dL (7.8-10.44); Glucose 122 mg/dL (83-110)
[2020-02-11 01:39] LABS: ALT (SGPT) 29 U/L (8-55); AST (SGOT) 44 U/L (5-34); Albumin 2.8 g/dL (3.4-4.8); Alkaline Phosphatase 298 U/L (40-110); CK (CPK) 47 U/L (30-200); Protein, Total 7.8 g/dL (5.8-8.1)
[2020-02-11 01:42] LABS: Anion Gap 15 mmol/L (10-20)
[2020-02-11 01:43] LABS: Globulin 2.8 g/dL (2.4-3.5)
[2020-02-11 01:49] LABS: Estimated GFR-MDRD Greater than 90
[2020-02-11 01:52] LABS: Calc. Creatinine Clearance 130 mL/min (70-130)
[2020-02-11] MEDS ORDERED: hydrALAZINE 20 MG/ML VIAL ONE (02:00)
[2020-02-11 02:03] LABS: CKMB 1.6 ng/mL (0-6.6)
== END 2020-02-11 02:34 | disposition short-term general hospital (02) ==
LOC: NAV ERS 23:08
DX: I11.0 Hypertensive heart disease with heart failure (principal); I50.9 Heart failure, unspecified; F32.9 Major depressive disorder, single episode, unspecified; F41.9 Anxiety disorder, unspecified; Z87.891 Personal history of nicotine dependence; Z79.899 Other long term (current) drug therapy; Z79.01 Long term (current) use of anticoagulants; I25.10 Atherosclerotic heart disease of native coronary artery without angina pectoris; G62.9 Polyneuropathy, unspecified
CPT/HCPCS: 36415; 51701; 81003; 81015; 82550; 82553; 83605; 83880; 84484; 85025; 87040; 93005; 94760; 96374; 96375; J0360; J1940

== ENCOUNTER 2020-02-24 20:56 | Inpatient (IN) | payer MEDICARE ==
[2020-02-24] MEDS ORDERED: Atorvastatin Calcium 40 MG TAB PO SCH (22:00)
[2020-02-24] MEDS ORDERED: Carvedilol 25 MG TAB PO SCH (22:00)
[2020-02-24] MEDS: Acetaminophen 325 MG TAB PO PRN (22:18)
[2020-02-24] MEDS: HYDROcodone/Acetaminophen 5/325 mg Tablet PO PRN (22:20)
[2020-02-25 05:37] VITALS: BMI 28.0
[2020-02-25] MEDS: Carvedilol 25 MG TAB PO SCH ×2 (09:28→21:06)
[2020-02-25] MEDS: Lisinopril 5 MG TAB PO SCH (09:29)
[2020-02-25] MEDS: Furosemide 20 MG TAB PO SCH (09:29)
[2020-02-25] MEDS: HYDROcodone/Acetaminophen 5/325 mg Tablet PO PRN ×2 (11:14→21:06)
[2020-02-25] MEDS ORDERED: Lidocaine 1% (PF) 30 ML VIAL ONE ×2 (14:06→20:30)
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
[2020-02-25] MEDS: Atorvastatin Calcium 40 MG TAB PO SCH (21:06)
[2020-02-25] MEDS: Loperamide HCl 2 MG CAP PO PRN (21:06)
[2020-02-26] MEDS: Lisinopril 5 MG TAB PO SCH (08:12)
[2020-02-26] MEDS: Carvedilol 25 MG TAB PO SCH ×2 (08:12→20:26)
[2020-02-26] MEDS: Furosemide 20 MG TAB PO SCH (08:12)
[2020-02-26] MEDS: Ondansetron ODT 4 MG TAB PO PRN ×2 (08:12→16:29)
[2020-02-26] MEDS: HYDROcodone/Acetaminophen 5/325 mg Tablet PO PRN ×2 (08:34→16:29)
--- NOTE | 2020-02-26 12:25 | PRG ---
DATE OF SERVICE: 02/26/2020 HISTORY OF PRESENT ILLNESS: Mr. Hillman is a well-developed, well-nourished, 69-year-old, white male who returns back to [facility] for continued physical therapy and occupational therapy. He was sent out about a week ago with [id number] congestive heart failure exacerbation. Unfortunately, he developed a compartment syndrome of his left elbow that had to be surgically drained and had a wound VAC on it. The wound VAC was removed before he came back down here, and he is here for physical therapy, occupational therapy, and nutritional support. SUBJECTIVE: Last night I had to put a stitch in his J-tube because the other stitch was very tenuous and coming out. We used some 3-0 Prolene. He tolerated that procedure very well. No significant pain or infection was noted. The same red rubber tube that Dr. Lema placed stayed in place. We just secured it much better. OBJECTIVE: VITAL SIGNS: Today reveal blood pressure 127/64, pulse 92, respirations 18, O2 saturation 96% on room air, T-max 98.4. Blood work has been ordered for tomorrow morning including a CBC, a comprehensive metabolic panel, a pre-albumin, and a BNP. The patient states he is doing very well, slept well, and has no concerns or complaints. Yesterday, he had quite a bit of watery stool, and he had 1 Imodium A-D. He has no more stool problems today. PHYSICAL EXAMINATION: GENERAL: This is a well-developed, well-nourished, very pleasant, 69-year-old, white male, in no apparent distress at this time. HEENT: Reveal normocephalic and nontraumatic cranium. Pupils are equally round and reactive. Extraocular movement is intact. Nose and throat are slightly dry, but clear. NECK: Supple without masses, nodes, or bruits. CHEST: Clear to auscultation. No rales. No rhonchi. No wheezes. No cough is noted. No air hunger is noted. HEART: Reveals a regular rate and rhythm without murmurs, gallops, or rubs. ABDOMEN: Soft and nontender without organomegaly. Normal bowel sounds are noted. Midline incision is healing well. J-tube is clean and dry. : Deferred. EXTREMITIES: Reveal no clubbing, cyanosis, or edema. The left forearm is wrapped and has a dressing over the area which is packed from his previous compartment syndrome incision. ASSESSMENT: 1. Recent sepsis from Stout catheter, and the patient has finished all his antibiotics. 2. Malnutrition which is ongoing problem. The patient now has a J-tube which has been secured last night with some 3-0 Prolene. 3. Hypertension. 4. Coronary artery disease, followed by Dr. Donald. 5. Wound care with an I and D and drainage of the left forearm from compartment syndrome. 6. Iron deficiency anemia. 7. Neuropathy. 8. History of low back pain. PLAN: 1. Continue to monitor the patient's blood pressure closely. 2. Monitor the patient and encourage the patient to participate well and heavily with his physical therapy and occupational therapy. 3. Continue occupational therapy and wound care to the left forearm from his compartment syndrome. 4. Continue to monitor the patient's electrolytes, iron, and pre-albumin weekly. 5. Stress ulcer prophylaxis. 6. Decubitus precautions. 7. DVT prophylaxis. 8. Watch out for diarrhea. 9. Continue physical therapy and occupational therapy. Job ID: [id number] [facility]
[2020-02-26] MEDS: Lidocaine 4% Topical Sol 50 ML BOT TOP PRN (13:17)
[2020-02-26] MEDS: Atorvastatin Calcium 40 MG TAB PO SCH (20:26)
[2020-02-27 05:44] LABS: ALT (SGPT) 45 U/L (8-55); AST (SGOT) 38 U/L (5-34); Albumin 2.5 g/dL (3.4-4.8); Alkaline Phosphatase 123 U/L (40-110); Anion Gap 15 mmol/L (10-20); BUN (Urea Nitrogen) 15 mg/dL (8.4-25.7); Bilirubin, Total 0.3 mg/dL (0.2-1.2); Calc. Creatinine Clearance 151 mL/min (70-130); Calcium 7.7 mg/dL (7.8-10.44); Carbon Dioxide 21 mmol/L (23-31); Chloride 104 mmol/L (98-107); Estimated GFR-MDRD Greater than 90; Globulin 3.7 g/dL (2.4-3.5); Glucose 117 mg/dL (83-110); Potassium 4.2 mmol/L (3.5-5.1); Protein, Total 6.2 g/dL (5.8-8.1); Sodium 136 mmol/L (136-145)
[2020-02-27 05:50] LABS: #Basophils 0.1 thou/uL (0.0-0.2); #Eosinphils 0.4 thou/uL (0.0-0.7); #Monocytes 0.5 thou/uL (0.11-0.59); #Neutrophils 6.5 thou/uL (1.40-6.50); %Eosinophils 5.1 % (0.0-10.0); %Lymphocytes 11.6 % (21.0-51.0); %Monocytes 5.9 % (0.0-10.0); %Neutrophils 76.4 % (42.0-75.0); Anisocytosis SLIGHT = 6-15 cells (100X) (0-5/hpf); Hemoglobin 8.2 g/dL (14.0-18.0); Hypochromia SLIGHT = 6-15 cells (100X) (0-5/hpf); MDiff Complete? YES; Mean Corpuscular HGB CONC 30.5 g/dL (32.0-36.0); Mean Corpuscular Hemoglobin 29.3 pg (27.0-31.0); Mean Corpuscular Volume 95.8 fL (78.0-98.0); Mean Platelet Volume 6.8 fL (7.4-10.4); Platelet Count 362 thou/uL (130-400); Platelet Morphology Comment Appears Adequate; Polychromasia SLIGHT = 2-3 cells (100X) (0-2/hpf); RBC Distribution Width 19.1 % (11.5-14.5); Red Blood Cell (RBC) Count 2.81 mill/uL (4.70-6.10); White Blood Cell (WBC) Count 8.6 thou/uL (4.8-10.8)
[2020-02-27] MEDS: Furosemide 20 MG TAB PO SCH (08:09)
[2020-02-27] MEDS: Lisinopril 5 MG TAB PO SCH (08:09)
[2020-02-27] MEDS: Carvedilol 25 MG TAB PO SCH ×2 (08:09→20:34)
[2020-02-27] MEDS: Ondansetron ODT 4 MG TAB PO PRN (08:16)
[2020-02-27] MEDS ORDERED: Simethicone Chewable 80 MG TAB PO PRN (13:00)
[2020-02-27] MEDS ORDERED: Ondansetron ODT 4 MG TAB PO PRN (13:00)
--- NOTE | 2020-02-27 17:55 | PRG ---
DATE OF SERVICE: 02/27/[address] Colleen Escudero. SUBJECTIVE: The patient feels well except he has developed diarrhea over the last 12 hours and has been found to have C diff positive stool. He has also developed swelling of his left arm at site of previous PICC line infection where wound VAC is in place. He has denied any fever, chills, shortness of breath. He is eating well and tolerating clear liquids, but is still doing a J-tube feeding. OBJECTIVE: VITAL SIGNS: Blood pressure is 123/57, temperature is 98, pulse 96, respirations 17, O2 sats 94% on room air, blood pressure is 131/62. LUNGS: Clear. CARDIAC: Showed regular rhythm. EXTREMITIES: Left arm is red and swollen up to the proximal upper arm. It is warm and tender. ABDOMEN: Soft and nontender. LABORATORY DATA: Shows C diff as mentioned above, it is positive. Most recent laboratories show white count is normal at 8600 this morning, hematocrit 26, hemoglobin 8.2. Sodium 136, potassium 4.2, chloride 104, bicarb 21, BUN 15, creatinine 0.53. BNP 239. Prealbumin of 14. ASSESSMENT: 1. Clostridium difficile colitis, on no treatment. We will start on vancomycin 125 orally p.o. q.6. 2. Left upper arm swelling, new onset with erythema, warmth and tenderness, possibly due to venous thrombosis, but also could be due to cellulitis. 3. Resolving gastric outlet obstruction with enterotomies and enterocutaneous fistula requiring J-tube placement, healing better. PLAN: 1. Venous Doppler. 2. Start Lovenox 80 mg subcu q.12 pending results of Doppler. 3. Start vancomycin 1.5 g q.12. 4. Obtain blood culture. 5. Repeat CBC and obtain lactic acid. Job ID: [id number]
[2020-02-27] MEDS ORDERED: Vancomycin 1.5 GRAM/300 ML BAG 1.5 GM in Premix Bag 1 BAG IVPB SCH (18:00)
[2020-02-27] MEDS: Vancomycin HCl 25 MG/ML Oral PO SCH (18:03)
[2020-02-27] MEDS: Vancomycin HCl 750 MG in Sodium Chloride 0.9% 250 ML 250 ML IVPB SCH ×2 (18:15→18:16)
[2020-02-27] MEDS: Enoxaparin Sodium 80 MG/0.8 ML SYRINGE SC SCH (20:34)
[2020-02-27] MEDS: Atorvastatin Calcium 40 MG TAB PO SCH (20:34)
[2020-02-28] MEDS: Vancomycin HCl 25 MG/ML Oral PO SCH ×5 (00:31→23:32)
[2020-02-28] MEDS: Vancomycin HCl 750 MG in Sodium Chloride 0.9% 250 ML 250 ML IVPB SCH ×4 (05:21→17:27)
[2020-02-28] MEDS: Lisinopril 5 MG TAB PO SCH (08:53)
[2020-02-28] MEDS: Furosemide 20 MG TAB PO SCH (08:54)
[2020-02-28] MEDS: Carvedilol 25 MG TAB PO SCH ×2 (08:54→20:00)
[2020-02-28] MEDS: Enoxaparin Sodium 80 MG/0.8 ML SYRINGE SC SCH (08:54)
--- NOTE | 2020-02-28 18:29 | PRG ---
DATE OF SERVICE: 02/28/2020 SUBJECTIVE: The patient feels slightly better with decreased diarrhea, but still having swelling and tenderness of the left arm. OBJECTIVE: EXTREMITIES: Left arm venous Doppler is negative for thrombosis, but does show significant soft tissue swelling. LUNGS: Clear. CARDIAC: Showed regular rhythm. ABDOMEN: Soft, nontender. VITAL SIGNS: Show temperature 98, pulse 87, respirations 18, O2 saturations 95% on room air, blood pressure 119/63. LABORATORY DATA: Shows white count yesterday was 8600, hematocrit 26, hemoglobin 8.2. Sodium 136, potassium 4.2, chloride 104, bicarb 21, BUN 15, creatinine 0.53. Albumin 2.5, prealbumin of 14.0. BNP 239. Left arm shows persistent swelling, erythema, and induration. ASSESSMENT: 1. Persistent cellulitis, on vancomycin. We will add Zosyn to cover gram negatives, anaerobes. 2. Resolving Clostridium difficile colitis, on oral vancomycin. 3. Improving deconditioning. 4. Resolving gastric outlet obstruction and enterocutaneous fistula and malnutrition. PLAN: Discontinue Lovenox. Start Zosyn 2.5 every 6 hours. Continue vancomycin 1.5 q.12 with trough level tomorrow. Job ID: [id number]
[2020-02-28] MEDS: Piperacillin/Tazobactam 2.25 GM in Sodium Chloride 0.9% 100 ML IVPB SCH (19:41)
[2020-02-28] MEDS: Atorvastatin Calcium 40 MG TAB PO SCH (20:00)
[2020-02-28] MEDS: diphenhydrAMINE 25 MG CAP PO PRN (21:01)
[2020-02-28] MEDS: Acetaminophen 325 MG TAB PO PRN (21:02)
[2020-02-29] MEDS: Piperacillin/Tazobactam 2.25 GM in Sodium Chloride 0.9% 100 ML IVPB SCH ×4 (02:55→20:35)
[2020-02-29 05:27] LABS: Vancomycin, Trough 18.1 ug/mL
[2020-02-29] MEDS: Vancomycin HCl 25 MG/ML Oral PO SCH ×3 (06:00→17:17)
[2020-02-29] MEDS: Vancomycin HCl 750 MG in Sodium Chloride 0.9% 250 ML 250 ML IVPB SCH ×2 (06:03→06:04)
[2020-02-29] MEDS: Furosemide 20 MG TAB PO SCH (08:48)
[2020-02-29] MEDS: Carvedilol 25 MG TAB PO SCH ×2 (08:48→20:37)
[2020-02-29] MEDS: Lisinopril 5 MG TAB PO SCH (08:49)
[2020-02-29] MEDS ORDERED: Piperacillin/Tazobactam 2.25 GM VIAL ONE (08:56)
[2020-02-29] MEDS: HYDROcodone/Acetaminophen 5/325 mg Tablet PO PRN ×2 (10:13→20:37)
--- NOTE | 2020-02-29 10:29 | PRG ---
DATE OF SERVICE: 02/29/2020 SUBJECTIVE: This is a well-developed, well-nourished 69-year-old white male, returns back to [facility] for continued physical therapy and occupational therapy. He had acute on chronic congestive heart failure exacerbation, developed compartment syndrome of the left elbow, which had to be surgically drained and had wound VAC on it. Wound VAC was removed before he came back here, now he is here for PT, OT and nutritional support. Over the weekend, Dr. Enio Louis saw him. The patient developed some diarrhea on Saturday. We checked him for C diff, which came back positive, everything else was negative. Dr. Louis saw him on Saturday when he noticed that he started having some pain, redness and swelling in his left arm. Ultrasound did not reveal a thrombus and is assumed that he had a cellulitis. Dr. Louis started him on vancomycin and Zosyn and put him on oral vancomycin for his C diff. Today, the patient states he is feeling better. He does not feel bad at all. He has no concerns or complaints. His arm has less redness and less swelling, and he is happy about that. His diarrhea is slowing down. OBJECTIVE: VITAL SIGNS: Today reveal blood pressure this morning 154/77, pulse 88, respirations 18, O2 saturation 94% to 96% on room air, and T-max 98.6. GENERAL: On physical exam, this is a well-developed, well-nourished, very pleasant white male, in no apparent distress at this time. HEENT: Normocephalic and nontraumatic cranium. Pupils equally round and reactive. Extraocular movements intact. Nose and throat are slightly dry. NECK: Supple without masses, nodes or bruits. CHEST: Clear to auscultation. No rales, rhonchi, wheezes or cough is heard. HEART: Regular rate and rhythm without murmurs, gallops or rubs. ABDOMEN: Soft and nontender without organomegaly. Wound is healing well. The patient states his diarrhea is slowing down. GENITOURINARY: Deferred. EXTREMITIES: His left arm has less redness and less swelling and states it does not hurt anymore. ASSESSMENT: 1. Cellulitis, on vancomycin. 2. Dr. Louis added Zosyn to cover gram negatives. 3. Resolving Clostridium difficile, presently on oral vancomycin. 4. Improving deconditioning. 5. Gastric outlet obstruction and malnutrition. 6. Coronary artery disease, followed by Dr. Donald. 7. Iron-deficiency anemia. 8. Neuropathy. 9. History of low back pain. PLAN: 1. Continue to monitor the patient's blood pressure closely. 2. Continue vancomycin orally for C diff. 3. Continue vancomycin and Zosyn for cellulitis. 4. Continue wound care to the left forearm from his compartment syndrome with wound VAC. 5. Monitor the patient's electrolytes, iron, and prealbumin weekly. 6. Stress ulcer prophylaxis. 7. Decubitus precautions. 8. DVT prophylaxis. 9. Continue physical therapy and occupational therapy. Job ID: [id number]
[2020-02-29] MEDS ORDERED: Sodium Chloride 0.9% 10 ML ONE (14:31)
[2020-02-29] MEDS: Vancomycin 1.5 GRAM/300 ML BAG 1.5 GM in Premix Bag 1 BAG IVPB SCH (17:18)
[2020-02-29] MEDS ORDERED: Sodium Chloride 0.9% 20 ML ONE (20:24)
[2020-02-29] MEDS: Atorvastatin Calcium 40 MG TAB PO SCH (20:36)
[2020-03-01] MEDS: Vancomycin HCl 25 MG/ML Oral PO SCH ×4 (00:19→17:33)
[2020-03-01] MEDS: Piperacillin/Tazobactam 2.25 GM in Sodium Chloride 0.9% 100 ML IVPB SCH ×4 (02:21→20:20)
[2020-03-01] MEDS: Vancomycin 1.5 GRAM/300 ML BAG 1.5 GM in Premix Bag 1 BAG IVPB SCH ×2 (05:33→17:33)
[2020-03-01] MEDS ORDERED: Sodium Chloride 0.9% 10 ML ONE ×2 (07:42→17:19)
[2020-03-01] MEDS: Furosemide 20 MG TAB PO SCH (08:59)
[2020-03-01] MEDS: Lisinopril 5 MG TAB PO SCH (08:59)
[2020-03-01] MEDS: Carvedilol 25 MG TAB PO SCH ×2 (08:59→20:27)
[2020-03-01] MEDS: HYDROcodone/Acetaminophen 5/325 mg Tablet PO PRN ×2 (10:34→20:29)
[2020-03-01] MEDS: Acetaminophen 325 MG TAB PO PRN (17:45)
[2020-03-01] MEDS ORDERED: Vancomycin HCl 750 MG in Sodium Chloride 0.9% 250 ML 250 ML IVPB SCH (18:00)
[2020-03-01] MEDS ORDERED: Vancomycin HCl 500 MG in Sodium Chloride 0.9% 100 ML IVPB SCH (18:00)
[2020-03-01] MEDS: Atorvastatin Calcium 40 MG TAB PO SCH (20:27)
[2020-03-02] MEDS: Vancomycin HCl 25 MG/ML Oral PO SCH ×5 (00:53→23:00)
[2020-03-02] MEDS: Piperacillin/Tazobactam 2.25 GM in Sodium Chloride 0.9% 100 ML IVPB SCH ×4 (00:57→20:10)
[2020-03-02] MEDS ORDERED: Sodium Chloride 0.9% 10 ML ONE ×2 (00:58→08:23)
[2020-03-02] MEDS: Vancomycin 1.5 GRAM/300 ML BAG 1.5 GM in Premix Bag 1 BAG IVPB SCH (04:59)
--- NOTE | 2020-03-02 06:57 | PRG ---
DATE OF SERVICE: 03/01/2020 SUBJECTIVE: Mr. Hillman is a well-developed, well-nourished, 69-year-old white male, who was transferred to [facility] for continued physical therapy and occupational therapy from [facility] in [place]. Unfortunately, he was transferred back up there for acute chronic congestive heart failure and developed compartment syndrome of the left elbow that had to be surgically drained by Dr. Lema and had a wound VAC applied. The patient was eventually stabilized and transferred back here for continued nutritional support, PT and OT. Over the weekend, Dr. Louis followed the patient, he developed diarrhea and unfortunately developed C. diff. He was started on vancomycin, but then also developed significant redness and swelling in his left arm. Ultrasound was done, which did not reveal a thrombus and assumed he had cellulitis. The patient was started on vancomycin, Zosyn for cellulitis by Dr. Louis and oral vancomycin for C diff. The patient states he is doing somewhat better this morning. His diarrhea seems to be slowing down. He seems like he is getting stronger. He did walk several feet, which is a significant improvement. The patient has no concerns. He is getting nutrition through his J-tube. He is not eating very much orally. I did encourage him to drink a little juice and he states he will start that. OBJECTIVE: VITAL SIGNS: Reveal blood pressure is slightly elevated at 164/70, pulse is 87, respirations 20, O2 saturation 96% on room air, t-max 98.8. GENERAL: On physical exam this is a well-developed, well-nourished, thin white male, in no apparent distress at this time. HEENT: Reveals normocephalic, nontraumatic cranium. Pupils equally round reactive. Extraocular movements are intact. Nose and throat are slightly dry. NECK: Supple without masses, nodes, or bruits. CHEST: Clear to auscultation. No rales, rhonchi, wheezes are heard. HEART: Reveals a regular rate and rhythm. ABDOMEN: Soft, nontender with some active bowel sounds. Midline incision continues to heal well. GENITOURINARY: Deferred. EXTREMITIES: Left arm reveals a lot less swelling and less redness. ASSESSMENT: 1. Cellulitis, on vancomycin and Zosyn. 2. Oral vancomycin for Clostridium difficile. 3. Gastric outlet obstruction. 4. Malnutrition present with J-tube feeding. 5. Coronary artery disease, followed by Dr. Ferrara. 6. Iron deficiency anemia. 7. Neuropathy. 8. History of low back pain. 9. Generalized weakness. PLAN: 1. Continue to encourage the patient to have some clear liquids or full liquids by mouth. 2. Continue to monitor the patient's blood pressure closely. 3. Continue oral vancomycin for 10-14 days. 4. Continue vancomycin and Zosyn for cellulitis. 5. Continue wound care of the left forearm from compartment syndrome, presently without the wound VAC. 6. Continue to monitor the patient's electrolytes, iron and pre-albumin weekly. 7. Stress ulcer prophylaxis. 8. Decubitus precautions. 9. DVT prophylaxis. 10. Continue PT and OT. Job ID: [id number]
[2020-03-02] MEDS: Lisinopril 5 MG TAB PO SCH (08:16)
[2020-03-02] MEDS: Carvedilol 25 MG TAB PO SCH ×2 (08:16→20:08)
[2020-03-02] MEDS: Cyclobenzaprine 10 MG TAB PO PRN (08:16)
[2020-03-02] MEDS: Furosemide 20 MG TAB PO SCH (08:17)
[2020-03-02] MEDS: Lidocaine 4% Topical Sol 50 ML BOT TOP PRN (08:20)
--- NOTE | 2020-03-02 08:40 | PRG ---
DATE OF SERVICE: 03/02/2020 SUBJECTIVE: Mr. Hillman is a well-developed, well-nourished, 69-year-old white male, with multiple problems and being transferred back and forth to [facility] in [place] to [facility]. He basically is stabilized after he had an acute on chronic congestive heart failure and development of compartment syndrome in his left elbow, which had to be surgically drained and wound VAC'd. He was actually doing very well and was transferred back to [facility]. He was transferred last week over the weekend. Dr. Louis started him on vancomycin IV and Zosyn because of cellulitis in the left arm. He also developed some C diff and was started on oral vancomycin. He states he is doing well and has no complaints of diarrhea at this time. His only complaint is that when he goes to therapy, he has significant muscle spasms in his back. He states he takes hydrocodone 7.5mg at home, which does not make him sleepy, but here when he takes it, he is sleepy. I did discuss with the nurses and apparently, he is taking two 7.5 hydrocodone before therapy. I recommended that we try to cut that back and maybe give him a muscle relaxer, so he will not be so sleepy. PHYSICAL EXAMINATION: VITAL SIGNS: Today reveal blood pressure 135/64, pulse 87, respirations 20, O2 saturation 96% on room air, and T-max 98.8. GENERAL: This is a well-developed, well-nourished, somewhat thin white male, in no apparent distress at this time. HEENT: Reveals normocephalic and nontraumatic cranium. Pupils are equally round and reactive. Extraocular movements are intact. Nose and throat are slightly dry. NECK: Supple without masses, nodes, or bruits. CHEST: Clear to auscultation. No rales, rhonchi, wheezes, or cough is heard. HEART: Reveals a regular rate and rhythm without murmurs, gallops, or rubs. ABDOMEN: Soft and nontender. Midline wound is healing well. The patient continues to have a J-tube, which is doing well and he is feeding well. No significant diarrhea is noted. GENITOURINARY: Deferred. EXTREMITIES: Left arm has less swelling and less redness. ASSESSMENT: 1. Cellulitis, on vancomycin and Zosyn. 2. Clostridium difficile, on oral vancomycin. 3. Gastric outlet obstruction and malnutrition, presently with a J-tube. 4. Coronary artery disease, followed by Dr. Donald. 5. Iron-deficiency anemia. 6. Neuropathy. 7. History of low back pain. 8. Generalized weakness. PLAN: 1. Continue to monitor the patient's blood pressure closely. 2. Continue vancomycin orally for C diff. 3. Continue vancomycin and Zosyn IV for cellulitis. 4. Wound care to the left forearm for compartment syndrome. 5. Continue wound VAC care. 6. Monitor the patient's electrolytes, iron, and pre-albumin weekly, which will be done tomorrow. 7. Stress ulcer prophylaxis. 8. Decubitus precautions. 9. DVT prophylaxis. 10. Continue PT and OT. Job ID: [id number] MTDD
[2020-03-02] MEDS: Vancomycin HCl 750 MG in Sodium Chloride 0.9% 250 ML 250 ML IVPB SCH (18:02)
[2020-03-02] MEDS ORDERED: Vancomycin HCl 500 MG in Sodium Chloride 0.9% 100 ML IVPB SCH (19:00)
[2020-03-02] MEDS: Vancomycin HCl 500 MG in Sodium Chloride 0.9% 100 ML IVPB SCH (20:06)
[2020-03-02] MEDS: HYDROcodone/Acetaminophen 5/325 mg Tablet PO PRN (20:07)
[2020-03-02] MEDS: Atorvastatin Calcium 40 MG TAB PO SCH (20:08)
[2020-03-03] MEDS: Piperacillin/Tazobactam 2.25 GM in Sodium Chloride 0.9% 100 ML IVPB SCH ×4 (02:28→21:34)
[2020-03-03] MEDS: Vancomycin HCl 25 MG/ML Oral PO SCH ×4 (05:00→23:21)
[2020-03-03] MEDS: Vancomycin HCl 750 MG in Sodium Chloride 0.9% 250 ML 250 ML IVPB SCH ×2 (05:00→18:06)
[2020-03-03 05:37] LABS: #Eosinphils 0.3 thou/uL (0.0-0.7); #Lymphocytes 0.9 thou/uL (1.20-3.40); #Monocytes 0.5 thou/uL (0.11-0.59); %Basophils 0.5 % (0.0-1.0); %Eosinophils 4.8 % (0.0-10.0); %Lymphocytes 13.4 % (21.0-51.0); %Monocytes 7.3 % (0.0-10.0); Anisocytosis MODERATE=16-30 cells (100X) (0-5/hpf); Hemoglobin 7.4 g/dL (14.0-18.0); Hypochromia MODERATE=16-30 cells (100X) (0-5/hpf); MDiff Complete? YES; Mean Corpuscular HGB CONC 31.3 g/dL (32.0-36.0); Mean Corpuscular Hemoglobin 30.1 pg (27.0-31.0); Mean Corpuscular Volume 96.2 fL (78.0-98.0); Mean Platelet Volume 6.3 fL (7.4-10.4); Microcytosis MODERATE=15-30 cells (100X) (0-5/hpf); Platelet Count 269 thou/uL (130-400); Platelet Morphology Comment Appears Adequate; Polychromasia SLIGHT = 2-3 cells (100X) (0-2/hpf); RBC Distribution Width 19.5 % (11.5-14.5); Red Blood Cell (RBC) Count 2.47 mill/uL (4.70-6.10); White Blood Cell (WBC) Count 6.7 thou/uL (4.8-10.8)
[2020-03-03 05:41] LABS: ALT (SGPT) 41 U/L (8-55); AST (SGOT) 31 U/L (5-34); Albumin 2.1 g/dL (3.4-4.8); Alkaline Phosphatase 92 U/L (40-110); Anion Gap 11 mmol/L (10-20); BUN (Urea Nitrogen) 11 mg/dL (8.4-25.7); Bilirubin, Total 0.2 mg/dL (0.2-1.2); Calc. Creatinine Clearance 167 mL/min (70-130); Calcium 6.5 mg/dL (7.8-10.44); Carbon Dioxide 19 mmol/L (23-31); Chloride 109 mmol/L (98-107); Estimated GFR-MDRD Greater than 90; Globulin 2.9 g/dL (2.4-3.5); Glucose 84 mg/dL (83-110); Potassium 3.3 mmol/L (3.5-5.1); Sodium 136 mmol/L (136-145)
[2020-03-03] MEDS: Carvedilol 25 MG TAB PO SCH ×2 (08:10→20:33)
[2020-03-03] MEDS: Lisinopril 5 MG TAB PO SCH (08:10)
[2020-03-03] MEDS: Cyclobenzaprine 10 MG TAB PO PRN (08:10)
[2020-03-03] MEDS: Furosemide 20 MG TAB PO SCH (08:10)
[2020-03-03] MEDS: Vancomycin HCl 500 MG in Sodium Chloride 0.9% 100 ML IVPB SCH ×2 (08:11→20:29)
[2020-03-03] MEDS: Acetaminophen 325 MG TAB PO PRN (11:00)
[2020-03-03] MEDS ORDERED: Sodium Bicarbonate Tab 325 MG TAB PER TUBE PRN (13:43)
[2020-03-03] MEDS ORDERED: Pancrelipase DR 12,000 1 CAP FS PRN (13:43)
[2020-03-03] MEDS: Potassium Chloride 20 MEQ TAB PO SCH (16:53)
[2020-03-03] MEDS: Atorvastatin Calcium 40 MG TAB PO SCH (20:33)
[2020-03-03] MEDS: HYDROcodone/Acetaminophen 5/325 mg Tablet PO PRN (20:34)
[2020-03-04] MEDS: Piperacillin/Tazobactam 2.25 GM in Sodium Chloride 0.9% 100 ML IVPB SCH ×4 (02:59→20:48)
[2020-03-04] MEDS: Vancomycin HCl 25 MG/ML Oral PO SCH ×4 (05:23→23:44)
[2020-03-04 05:38] LABS: Vancomycin, Trough 19.9 ug/mL
[2020-03-04] MEDS: Vancomycin HCl 750 MG in Sodium Chloride 0.9% 250 ML 250 ML IVPB SCH ×2 (05:44→17:21)
[2020-03-04] MEDS: Lisinopril 5 MG TAB PO SCH (08:18)
[2020-03-04] MEDS: Vancomycin HCl 500 MG in Sodium Chloride 0.9% 100 ML IVPB SCH ×2 (08:18→19:36)
[2020-03-04] MEDS: Potassium Chloride 20 MEQ TAB PO SCH ×2 (08:19→17:20)
[2020-03-04] MEDS: Furosemide 20 MG TAB PO SCH (08:19)
[2020-03-04] MEDS: Carvedilol 25 MG TAB PO SCH ×2 (08:19→20:47)
[2020-03-04] MEDS: Acetaminophen 325 MG TAB PO PRN ×2 (08:19→12:21)
[2020-03-04] MEDS: Loperamide HCl 2 MG CAP PO PRN (11:37)
--- NOTE | 2020-03-04 12:00 | PRG ---
DATE OF SERVICE: 03/03/2020 SUBJECTIVE: Mr. Hillman is a well-developed, well-nourished 69-year-old white male. He has had multiple abdominal problems including poor nutrition, so that he has multiple enterotomies and has a gastric outlet obstruction. He has a J-tube, has been there since his surgery by Dr. Lema. He has actually been doing fairly well and was seen this morning while he was in physical therapy. He has walked 5 times this morning and the longest walk was 40 feet. He has been doing extremely well. Unfortunately, he developed C diff last week. He has been on oral vancomycin and he developed cellulitis in his left arm and was treated with vancomycin and Zosyn. Those are all much improved. He has no concerns or complaints. Late this afternoon, I did get a call from the nurse stating that his PEG tube was clogged up. He states that someone put some chocolate in it to plug it up and showed that he was slightly confused. I did call for transfer to [facility], but we did discuss things with the Pharmacy and they were able to find some type of solution to go ahead and clear his J-tube out. It is functioning well along with the J-tube pump. OBJECTIVE: VITAL SIGNS: Today reveal blood pressure this morning was 157/82, pulse 88, respirations 20, O2 saturation 94% to 95% on room air, T-max 98.7. GENERAL: This is a well-developed, well-nourished, pleasant white male, in no apparent distress this morning, seen in physical therapy. He states he is a little tired because he has walked 5 times with the longest one being 40 feet. HEENT: Reveal normocephalic, nontraumatic cranium. The pupils are equally round and reactive. Extraocular movements are intact. Nose and throat are slightly dry. NECK: Supple without masses, nodes, or bruits. CHEST: Clear to auscultation. No rales, rhonchi, wheezes, or cough is heard. HEART: Reveals a regular rate and rhythm without murmurs, gallops, or rubs. ABDOMEN: Soft and nontender. Midline wound continues to heal well. The patient continues to have J-tube. This morning, it was working better, but got clogged up this afternoon, but was eventually flushed with appropriate solution and it is working again. : Deferred. EXTREMITIES: Reveal left arm has less swelling, still less redness. LABORATORY DATA: Laboratory this morning revealed a white count of 6000 with hemoglobin slightly lower at 7.4, hematocrit 23.7, and platelet count of 269, 000. Sodium is 136, potassium slightly low at 3.3, chloride 109, carbon dioxide 19, creatinine was 0.48. GFR was greater than 90%. Glucose was 84 this morning. His albumin is low at 2.1. His pre-albumin has decreased from 14 to 13. His BNP was 220.5. ASSESSMENT: 1. Cellulitis of the left arm, presently on vancomycin and Zosyn. 2. Clostridium difficile, on oral vancomycin. 3. Gastric outlet obstruction, now nutrition with a J-tube that was plugged, now presently open again. 4. Coronary artery disease, followed by Dr. Donald. 5. Iron deficiency anemia. 6. Neuropathy. 7. Occasional confusion. 8. History of low back pain. 9. Generalized weakness. PLAN: 1. Continue to flush the patient's J-tube to make sure that it continues to function. 2. Continue vancomycin. 3. Continue vancomycin and Zosyn IV for cellulitis. 4. Wound care in the left forearm for compartment syndrome. 5. Continue wound VAC care. 6. Monitor the patient's electrolytes, iron, and prealbumin weekly, which will be done tomorrow. 7. Stress ulcer prophylaxis. 8. Decubitus precautions. 9. DVT prophylaxis. 10. Continue PT and OT. Job ID: [id number] [facility]
[2020-03-04] MEDS: HYDROcodone/Acetaminophen 5/325 mg Tablet PO PRN ×2 (12:32→20:49)
[2020-03-04] MEDS ORDERED: Sodium Bicarbonate Tab 325 MG TAB PER TUBE SCH (14:00)
[2020-03-04] MEDS ORDERED: Pancrelipase DR 12,000 1 CAP PER TUBE SCH (14:00)
[2020-03-04] MEDS: Lidocaine 4% Topical Sol 50 ML BOT TOP PRN (14:05)
--- NOTE | 2020-03-04 16:37 | PRG ---
DATE OF SERVICE: 03/04/2020 SUBJECTIVE: Mr. Hillman is a 69-year-old white male with multiple abdominal problems including multiple enterotomies in the past with gastric outlet obstruction with a J-tube. He has been malnourished and has had poor healing. He basically was transferred down to [facility] for nutritional supplementation through his J-tube. Unfortunately, developed cellulitis in his left arm last week and was started on vancomycin and Zosyn IV. He also developed C difficile and he is on oral vancomycin. Yesterday, his J-tube got clogged and they ended up putting pancrease along with sodium bicarbonate in it that would eventually open it up. We have decided to go ahead and do that daily to keep it open. OBJECTIVE: VITAL SIGNS: Today reveals blood pressure this morning 148/77, pulse 87, respirations 20, O2 saturation 95% to 96% on room air, T-max 98.3. GENERAL: This is a well-developed, well-nourished, very pleasant 69-year-old white male, in no apparent distress at this time. HEENT: Normocephalic, nontraumatic cranium. Pupils are equal, round, and reactive. Extraocular movements are intact. Nose and throat are slightly dry. NECK: Supple without masses, nodes, or bruits. CHEST: Clear to auscultation. No rales, rhonchi, wheezes, or cough is noted. ABDOMEN: Soft. PEG tube is clean, clear, and functioning. Normal bowel sounds are noted in all 4 quadrants. : Deferred. EXTREMITIES: No clubbing, cyanosis, or edema. His left upper extremity continues to slowly improve with less redness and less swelling. ASSESSMENT: 1. Cellulitis, left arm, presently on vancomycin and Zosyn. 2. Clostridium difficile, on oral vancomycin. 3. Gastric outlet obstruction, now with a J-tube that has been unplugged. 4. Coronary artery disease, followed by Dr. Donald. 5. Iron-deficiency anemia. 6. Neuropathy. 7. Occasional confusion. 8. History of low back pain. 9. Generalized weakness. PLAN: 1. Flush the patient's J-tube to make sure it continues to function. 2. Continue vancomycin orally for Clostridum difficile. 3. Continue vancomycin and Zosyn for cellulitis. 4. Wound care for left arm for compartment syndrome. 5. Continue wound VAC. 6. Monitor the patient's electrolytes, iron, and prealbumin weekly. 7. Stress ulcer prophylaxis. 8. Decubitus precautions. 9. Deep venous thrombosis prophylaxis. 10. Continue physical therapy and occupational therapy. Job ID: [id number]
[2020-03-04] MEDS: Atorvastatin Calcium 40 MG TAB PO SCH (20:47)
[2020-03-05] MEDS: Piperacillin/Tazobactam 2.25 GM in Sodium Chloride 0.9% 100 ML IVPB SCH ×4 (03:10→20:33)
[2020-03-05] MEDS: Vancomycin HCl 25 MG/ML Oral PO SCH ×3 (05:37→17:50)
[2020-03-05] MEDS: Vancomycin HCl 750 MG in Sodium Chloride 0.9% 250 ML 250 ML IVPB SCH (05:38)
[2020-03-05] MEDS: Vancomycin HCl 500 MG in Sodium Chloride 0.9% 100 ML IVPB SCH (08:08)
[2020-03-05] MEDS: Lisinopril 5 MG TAB PO SCH (08:08)
[2020-03-05] MEDS: Pancrelipase DR 12,000 1 CAP PER TUBE SCH (08:09)
[2020-03-05] MEDS: Furosemide 20 MG TAB PO SCH (08:09)
[2020-03-05] MEDS: Sodium Bicarbonate Tab 325 MG TAB PER TUBE SCH (08:09)
[2020-03-05] MEDS: Carvedilol 25 MG TAB PO SCH ×2 (08:09→20:39)
[2020-03-05] MEDS: Potassium Chloride 20 MEQ TAB PO SCH ×2 (08:09→16:32)
[2020-03-05] MEDS: HYDROcodone/Acetaminophen 5/325 mg Tablet PO PRN ×2 (10:10→17:50)
[2020-03-05] MEDS: Acetaminophen 325 MG TAB PO PRN (14:46)
[2020-03-05 17:26] LABS: Vancomycin, Trough 23.7 ug/mL
[2020-03-05] MEDS: Vancomycin HCl 1 GM in Sodium Chloride 0.9% 250 ML 250 ML IVPB SCH (18:00)
--- NOTE | 2020-03-05 18:15 | PRG ---
DATE OF SERVICE: 03/05/2020 SUBJECTIVE: Mr. Hillman is up in his chair. He is tolerating his J-tube feeding. He is also tolerating liquids. Peripheral IV had to be replaced. No fever or chills. OBJECTIVE: VITAL SIGNS: He is afebrile. Heart rate 88, respirations 20, oxygen saturation 95% on room air, blood pressure 148/74. CARDIOVASCULAR: S1, S2 plus. RESPIRATORY: Non-vesicular breath sounds. ABDOMEN: Soft nontender. Bowel sounds heard in all quadrants. EXTREMITIES: Without cyanosis or clubbing. J-tube site is healthy. IMPRESSION: 1. Gastric outlet obstruction, requiring jejunostomy-tube feeding. 2. Left thumb cellulitis resolving with vancomycin and Zosyn. 3. Coronary artery disease. 4. Peripheral neuropathy. 5. Deconditioning. PLAN: 1. Continue current medications. 2. Contact isolation for resolving C. diff. 3. Monitor cardiovascular status. 4. Continue antibiotics. 5. J-tube care. 6. Physical therapy. 7. Routine laboratory values. Job ID: [id number]
[2020-03-05] MEDS: Atorvastatin Calcium 40 MG TAB PO SCH (20:38)
[2020-03-06] MEDS: Vancomycin HCl 25 MG/ML Oral PO SCH ×5 (00:17→23:44)
[2020-03-06] MEDS: Piperacillin/Tazobactam 2.25 GM in Sodium Chloride 0.9% 100 ML IVPB SCH ×4 (02:56→20:26)
[2020-03-06] MEDS: Vancomycin HCl 1 GM in Sodium Chloride 0.9% 250 ML 250 ML IVPB SCH ×2 (05:59→17:18)
[2020-03-06] MEDS: Sodium Bicarbonate Tab 325 MG TAB PER TUBE SCH (08:15)
[2020-03-06] MEDS: Carvedilol 25 MG TAB PO SCH ×2 (08:15→20:26)
[2020-03-06] MEDS: Potassium Chloride 20 MEQ TAB PO SCH ×2 (08:15→17:18)
[2020-03-06] MEDS: Pancrelipase DR 12,000 1 CAP PER TUBE SCH (08:16)
[2020-03-06] MEDS: Lisinopril 5 MG TAB PO SCH (08:16)
[2020-03-06] MEDS: HYDROcodone/Acetaminophen 5/325 mg Tablet PO PRN (08:16)
[2020-03-06] MEDS: Furosemide 20 MG TAB PO SCH (08:16)
--- NOTE | 2020-03-06 15:47 | PRG ---
DATE OF SERVICE: 03/06/2020 SUBJECTIVE: Mr. Hillman is doing the same. Tolerating his antibiotics. Denies any questions or concerns. No fever or chills. OBJECTIVE: VITAL SIGNS: He is afebrile, heart rate 92, respirations 18, oxygen saturation 93% on room air, blood pressure 143/81. CARDIOVASCULAR: S1 and S2 plus. RESPIRATORY: Normal vesicular breath sounds. ABDOMEN: Soft, nontender. Bowel sounds heard in all quadrants. EXTREMITIES: Without cyanosis or clubbing. CENTRAL NERVOUS SYSTEM: Improving deconditioning. IMPRESSION: 1. Left arm cellulitis. 2. Gastric outlet obstruction requiring J-tube placement. 3. Coronary artery disease. 4. Peripheral neuropathy. 5. Deconditioning. PLAN: 1. Continue current medications including antibiotics. 2. Continue contact isolation. 3. Tube feedings through J-tube and continue liquid intake orally. 4. Physical therapy. 5. DVT and stress ulcer prophylaxis. 6. J-tube care. 7. Dr. Esc[facility]. Job ID: [id number]
[2020-03-06] MEDS: Acetaminophen 325 MG TAB PO PRN ×2 (18:07→20:26)
[2020-03-06] MEDS: Atorvastatin Calcium 40 MG TAB PO SCH (20:26)
[2020-03-06] MEDS: diphenhydrAMINE 25 MG CAP PO PRN (23:46)
[2020-03-07] MEDS: Piperacillin/Tazobactam 2.25 GM in Sodium Chloride 0.9% 100 ML IVPB SCH ×4 (03:21→20:33)
[2020-03-07 05:28] LABS: Vancomycin, Trough 17.7 ug/mL
[2020-03-07] MEDS: Vancomycin HCl 25 MG/ML Oral PO SCH ×4 (06:03→23:52)
[2020-03-07] MEDS: Vancomycin HCl 1 GM in Sodium Chloride 0.9% 250 ML 250 ML IVPB SCH ×2 (06:03→17:50)
[2020-03-07] MEDS: Sodium Bicarbonate Tab 325 MG TAB PER TUBE SCH (08:25)
[2020-03-07] MEDS: Lisinopril 5 MG TAB PO SCH (08:25)
[2020-03-07] MEDS: Carvedilol 25 MG TAB PO SCH ×2 (08:25→20:34)
[2020-03-07] MEDS: Potassium Chloride 20 MEQ TAB PO SCH ×2 (08:26→17:50)
[2020-03-07] MEDS: Pancrelipase DR 12,000 1 CAP PER TUBE SCH (08:26)
[2020-03-07] MEDS: Lidocaine 4% Topical Sol 50 ML BOT TOP PRN (08:27)
[2020-03-07] MEDS: Furosemide 20 MG TAB PO SCH (08:27)
[2020-03-07] MEDS: HYDROcodone/Acetaminophen 5/325 mg Tablet PO PRN (08:41)
--- NOTE | 2020-03-07 13:59 | PRG ---
DATE OF SERVICE: 03/07/2020 SUBJECTIVE: Mr. Hillman is a well-developed 69-year-old white male, with multiple abdominal problems and medical problems. Unfortunately, he had multiple enterotomies when he was explored for gastric outlet obstruction. Unfortunately , that was unable to be fixed because the enterotomies of the patient began to crash. He did have a J-tube placed which is a red rubber catheter, which was sewn in. He has been malnourished and has had poor healing. Eventually, he was transferred back to [facility] for nutritional supplementation through his J- tube. He is only able to take clear liquids and full liquids orally. He developed cellulitis in his left arm while Dr. Louis was on weekend duty and was started on Zosyn and vancomycin. Also developed Clostridium difficile. He is on oral vancomycin. His last day for his vancomycin and Zosyn is 03/15 for the vancomycin and 03/12 for the Zosyn in the evening. The patient is still presently on the oral vancomycin for his Clostridium difficile. He did have blood work last weekend, which actually was fairly good. He is still somewhat anemic. His pre-albumin has gone from 14 down to 13. Vancomycin was 17.7. OBJECTIVE: VITAL SIGNS: Today reveal blood pressure this morning 146/74, pulse 85 to 90, respirations 18 to 20, and O2 saturation 95% to 96% on room air, and T- max 98.5. GENERAL: This is a well-developed, well-nourished, very talkative and happy white male this morning. HEENT: Reveals normocephalic and nontraumatic cranium. Pupils equally round and reactive. Extraocular movements are intact. Nose and throat are slightly dry, but clear. NECK: Supple without masses, nodes, or bruits. CHEST: Clear to auscultation. No rales, rhonchi, wheezes, or cough is heard. HEART: Reveals a regular rate and rhythm without murmurs, gallops, or rubs. ABDOMEN: Reveals soft, nontender, granulation tissue along his midline incision which is healing. Wound VAC is off for that. PEG tube is clean and draining well and functioning well. Normal bowel sounds noted in all 4 quadrants. : Exam is deferred. EXTREMITIES: Reveal no clubbing, cyanosis, or edema. Left upper extremity has much improved, much less redness and swelling. LABORATORY DATA: Blood cultures x2 were negative and remained negative. ASSESSMENT: 1. Cellulitis, left arm, present on vancomycin and Zosyn. 2. The patient has finished his vancomycin IV on 03/15/2020 at 1800 hours. 3. The patient finishes his Zosyn IV on 03/12 at 2100 hours. 4. Gastric outlet obstruction with J-tube that has been plugged and working well. 5. Clostridium difficile, on oral vancomycin. 6. Coronary artery disease, followed by Dr. Donald. 7. Iron deficiency anemia. 8. Neuropathy. 9. confusion. 10. History of low back pain. 11. Generalized weakness. PLAN: 1. Continue to flush the patient's J-tube daily with Pancrease enzyme and bicarb. 2. Continue vancomycin orally for Clostridium difficile. 3. Continue vancomycin Zosyn for cellulitis of the left arm. 4. Continue wound care for compartment syndrome of the left arm. 5. Continue wound VAC to left arm. 6. Monitor the patient's electrolytes, iron, and pre-albumin weekly. 7. Stress ulcer prophylaxis. 8. Decubitus precautions. 9. DVT prophylaxis. 10. Continue physical therapy and occupational therapy. Job ID: [id number] [facility]
[2020-03-07] MEDS: Acetaminophen 325 MG TAB PO PRN ×2 (16:29→20:34)
[2020-03-07] MEDS: Atorvastatin Calcium 40 MG TAB PO SCH (20:34)
[2020-03-07] MEDS: Cyclobenzaprine 10 MG TAB PO PRN (20:34)
[2020-03-08] MEDS: Piperacillin/Tazobactam 2.25 GM in Sodium Chloride 0.9% 100 ML IVPB SCH ×4 (02:59→20:43)
[2020-03-08] MEDS: Vancomycin HCl 25 MG/ML Oral PO SCH ×4 (05:59→23:53)
[2020-03-08] MEDS: Vancomycin HCl 1 GM in Sodium Chloride 0.9% 250 ML 250 ML IVPB SCH ×2 (05:59→17:25)
[2020-03-08] MEDS: Potassium Chloride 20 MEQ TAB PO SCH ×2 (07:54→17:24)
[2020-03-08] MEDS: HYDROcodone/Acetaminophen 5/325 mg Tablet PO PRN ×2 (08:05→13:28)
[2020-03-08] MEDS: Lisinopril 5 MG TAB PO SCH (09:56)
[2020-03-08] MEDS: Carvedilol 25 MG TAB PO SCH ×2 (09:56→20:44)
[2020-03-08] MEDS: Pancrelipase DR 12,000 1 CAP PER TUBE SCH (09:57)
[2020-03-08] MEDS: Sodium Bicarbonate Tab 325 MG TAB PER TUBE SCH (09:57)
[2020-03-08] MEDS: Furosemide 20 MG TAB PO SCH (09:57)
[2020-03-08] MEDS ORDERED: Iron, Sodium Ferric Gluconate 250 MG in Sodium Chloride 0.9% 100 ML IVPB SCH (15:00)
[2020-03-08] MEDS: Acetaminophen 325 MG TAB PO PRN ×2 (17:29→20:43)
[2020-03-08 17:34] LABS: Vancomycin, Trough 18.1 ug/mL
[2020-03-08] MEDS: Atorvastatin Calcium 40 MG TAB PO SCH (20:43)
[2020-03-08] MEDS: Cyclobenzaprine 10 MG TAB PO PRN (20:44)
--- NOTE | 2020-03-08 22:06 | PRG ---
DATE OF SERVICE: 03/08/2020 SUBJECTIVE: Mr. Hillman is a well-developed 69 year old white male. He has had multiple abdominal problems and multiple surgeries. Unfortunately, he continues to have gastric outlet obstruction, but is nutritionally deficient and would not survive a surgery at this time. The game plan is for Dr. Lema to address that problem in April if he is able to build up his strength, stamina, and nutrition. The patient states he is doing well and his C difficile is much better controlled. He remains on Zosyn and vancomycin. His C difficile reveals he is now having formed stools. He is due for blood work tomorrow. OBJECTIVE: VITAL SIGNS: Reveal blood pressure this morning 147/74, pulse 83, respirations 20, O2 saturation 96% on room air, T-max 98.8. GENERAL: On physical exam, this is a well-developed, well-nourished, thin white male, in no apparent distress at this time. HEENT: Reveals normocephalic, nontraumatic cranium. Pupils equally round and reactive. Extraocular movements intact. Nose and throat are slightly dry. NECK: Supple without masses, nodes, or bruits. CHEST: Clear to auscultation. No rales, rhonchi, wheezes, or cough is heard. HEART: Reveals a regular rate and rhythm without murmurs, gallops, or rubs. ABDOMEN: Reveals midline scar with dense granulation tissue. PEG tube is clean and draining well and functioning well. Normal bowel sounds noted in all 4 quadrants. SKIN: Wound VAC is on his left arm. : Exam is deferred. EXTREMITIES: Reveal no clubbing, cyanosis, or edema. The left heel has a quarter-size stage III ulcer. ASSESSMENT: 1. Cellulitis, left arm, presently on vancomycin and Zosyn. 2. The patient will finish his vancomycin IV on 03/15/2020 at 1800 hours. 3. The patient will finish his Zosyn IV on 03/12 at 2100 hours. 4. Gastric outlet obstruction with J-tube in and is working well. 5. C difficile, on oral vancomycin. 6. Coronary artery disease, followed by Dr. Donald. 7. Iron deficiency anemia. 8. Neuropathy. 9. History of low back pain. 10. Generalized weakness. PLAN: 1. Continue to flush the patient's J-tube daily with Pancrease enzyme and bicarb. 2. Continue vancomycin orally for C difficile. 3. Continue vancomycin and Zosyn for cellulitis of the left arm. 4. Wound care for compartment syndrome of the left arm. 5. Continue wound VAC to left arm. 6. Monitor the patient's electrolytes, iron, and pre-albumin weekly. 7. Stress ulcer prophylaxis. 8. Decubitus precautions. 9. DVT prophylaxis. 10. Continue physical therapy and occupational therapy. 11. The patient should have had some IV iron today. Job ID: [id number] MTDD
[2020-03-09] MEDS: Piperacillin/Tazobactam 2.25 GM in Sodium Chloride 0.9% 100 ML IVPB SCH ×4 (03:30→20:49)
[2020-03-09 05:18] LABS: %Lymphocytes 16.4 % (21.0-51.0); %Monocytes 7.4 % (0.0-10.0); %Neutrophils 67.3 % (42.0-75.0); Hemoglobin 8.6 g/dL (14.0-18.0); Manual Diff?? NO; Mean Corpuscular HGB CONC 30.1 g/dL (32.0-36.0); Mean Corpuscular Hemoglobin 30.2 pg (27.0-31.0); Mean Platelet Volume 7.1 fL (7.4-10.4); Platelet Count 164 thou/uL (130-400); RBC Distribution Width 19.4 % (11.5-14.5); Red Blood Cell (RBC) Count 2.86 mill/uL (4.70-6.10); White Blood Cell (WBC) Count 5.6 thou/uL (4.8-10.8)
[2020-03-09 05:19] LABS: #Basophils 0.1 thou/uL (0.0-0.2); #Eosinphils 0.4 thou/uL (0.0-0.7); #Lymphocytes 0.9 thou/uL (1.20-3.40); #Monocytes 0.4 thou/uL (0.11-0.59); #Neutrophils 3.7 thou/uL (1.40-6.50); %Basophils 1.2 % (0.0-1.0); %Eosinophils 7.8 % (0.0-10.0)
[2020-03-09 05:22] LABS: Anisocytosis MODERATE=16-30 cells (100X) (0-5/hpf); Spherocytes SLIGHT = 1-5 cells (100X) (None Seen)
[2020-03-09 05:24] LABS: ALT (SGPT) 40 U/L (8-55); AST (SGOT) 29 U/L (5-34); Albumin 2.5 g/dL (3.4-4.8); Alkaline Phosphatase 94 U/L (40-110); Anion Gap 12 mmol/L (10-20); BUN (Urea Nitrogen) 14 mg/dL (8.4-25.7); Bilirubin, Total 0.3 mg/dL (0.2-1.2); Calc. Creatinine Clearance 149 mL/min (70-130); Calcium 7.6 mg/dL (7.8-10.44); Carbon Dioxide 23 mmol/L (23-31); Chloride 103 mmol/L (98-107); Estimated GFR-MDRD Greater than 90; Globulin 3.1 g/dL (2.4-3.5); Glucose 102 mg/dL (83-110); Potassium 4.3 mmol/L (3.5-5.1); Protein, Total 5.6 g/dL (5.8-8.1); Sodium 134 mmol/L (136-145)
[2020-03-09] MEDS: Vancomycin HCl 25 MG/ML Oral PO SCH ×4 (05:29→23:25)
[2020-03-09] MEDS: Vancomycin HCl 1 GM in Sodium Chloride 0.9% 250 ML 250 ML IVPB SCH ×2 (05:29→17:23)
[2020-03-09] MEDS: Potassium Chloride 20 MEQ TAB PO SCH ×2 (07:28→16:49)
[2020-03-09] MEDS: HYDROcodone/Acetaminophen 5/325 mg Tablet PO PRN ×2 (07:29→13:29)
[2020-03-09] MEDS: Pancrelipase DR 12,000 1 CAP PER TUBE SCH (08:25)
[2020-03-09] MEDS: Carvedilol 25 MG TAB PO SCH ×2 (08:25→20:49)
[2020-03-09] MEDS: Lisinopril 5 MG TAB PO SCH (08:25)
[2020-03-09] MEDS: Sodium Bicarbonate Tab 325 MG TAB PER TUBE SCH (08:25)
[2020-03-09] MEDS: Furosemide 20 MG TAB PO SCH (08:25)
[2020-03-09] MEDS: Acetaminophen 325 MG TAB PO PRN (09:55)
--- NOTE | 2020-03-09 12:15 | PRG ---
DATE OF SERVICE: 03/09/2020 SUBJECTIVE: Mr. Hillman is a 69-year-old white male with multiple abdominal problems and multiple surgeries. Unfortunately, he has a gastric outlet obstruction. That was unable to be fixed because of his poor tissue in his abdomen when Dr. Lema initially opened him up. He did place a J-tube and he is being fed that way until his nutrition is better. Dr. Lema is planning on re-addressing the gastric outlet obstruction in April if his strength, stamina and nutrition are much improved. The patient states he can walk 40 to 50 feet, but then he stopped because his back pain gets so bad. He has seen Dr. Cabezas in the past, has had injections in the past. Physical Therapy evaluated him yesterday and said that his pain is mainly at L1-L2 paraspinal area and they feel like he just needs a trigger point injection along with his other injections that Dr. Cabezas does. We have called Dr. Cabezas's office and he has an appointment Saturday at 12:50 to get that injected. The patient is excited in hopes that after getting that injected, he will be able to get a lot more strength and stamina. The patient is also supposed to have his iron IV done today because they were unable to do it yesterday. It is supposed to be mixed and then immediately given. OBJECTIVE: VITAL SIGNS: Today reveal blood pressure is 132/67, pulse 92, respirations 18, and O2 sat 96% on room air. GENERAL: This is a well-developed, well-nourished, pleasant at times confused white male, in no apparent distress at this time. HEENT: Normocephalic and nontraumatic cranium. Pupils are equally round and reactive. Extraocular movements are intact. Nose and throat are slightly dry. The patient has not shaved and he has a bushy head of hair at this time. NECK: Supple without masses, nodes or bruits. CHEST: Clear to auscultation. No rales, rhonchi, wheezes or cough is heard. HEART: Regular rate and rhythm without murmurs, gallops or rubs. ABDOMEN: Soft and nontender without organomegaly. Normal bowel sounds are noted. PEG tube is functioning, is clean and dry. No rebound or guarding is noted. : Deferred. EXTREMITIES: No clubbing, cyanosis or edema. The left arm still has a wound VAC attached. The left heel has a quarter-sized stage 3 to 4 ulcer. ASSESSMENT: 1. Cellulitis, left arm, presently on vancomycin and Zosyn. 2. The patient will finish his IV vancomycin on 03/15/2020 at 1800 hours. 3. The patient will finish his Zosyn IV on 03/12 at 2100 hours. 4. Gastric outlet obstruction with J-tube feedings, which continued to work well. 5. Clostridium difficile, on oral vancomycin. 6. Coronary artery disease, followed by Dr. Donald. 7. Iron-deficiency anemia. 8. Neuropathy. 9. History of low back pain. 10. Generalized weakness. PLAN: 1. Continue flushing the patient J-tube daily to keep it open. We will flush with Pancrease enzyme and bicarb. 2. Continue vancomycin orally for C diff, total of 10 days. 3. Continue vancomycin and Zosyn for cellulitis of his arm until the expected stop date. 4. Wound care for compartment syndrome in left arm. 5. Continue wound VAC to left arm. 6. Monitor the patient's electrolytes, iron, and pre-albumin weekly. 7. Awaiting pre-albumin results from today. 8. Stress ulcer prophylaxis. 9. Decubitus precautions. 10. DVT prophylaxis. 11. Continue physical therapy and occupational therapy. 12. The patient will have his IV iron today. 13. The patient has an appointment with Dr. Cabezas in his office on Saturday at 12:50 p.m. to get trigger-point injection at L1-L2 in paraspinal area and whatever his other injections are from Dr. Cabezas. Job ID: [id number]
[2020-03-09] MEDS: Lidocaine 4% Topical Sol 50 ML BOT TOP PRN (14:01)
[2020-03-09] MEDS: Iron, Sodium Ferric Gluconate 250 MG in Sodium Chloride 0.9% 100 ML IVPB SCH (15:33)
[2020-03-09] MEDS: Atorvastatin Calcium 40 MG TAB PO SCH (20:48)
[2020-03-09] MEDS: Cyclobenzaprine 10 MG TAB PO PRN (20:49)
[2020-03-10] MEDS: Piperacillin/Tazobactam 2.25 GM in Sodium Chloride 0.9% 100 ML IVPB SCH ×4 (02:43→20:56)
[2020-03-10] MEDS: Vancomycin HCl 25 MG/ML Oral PO SCH ×4 (05:34→23:30)
[2020-03-10] MEDS: Vancomycin HCl 1 GM in Sodium Chloride 0.9% 250 ML 250 ML IVPB SCH ×2 (05:34→17:53)
[2020-03-10] MEDS: Sodium Bicarbonate Tab 325 MG TAB PER TUBE SCH (08:18)
[2020-03-10] MEDS: Potassium Chloride 20 MEQ TAB PO SCH ×2 (08:18→17:03)
[2020-03-10] MEDS: Carvedilol 25 MG TAB PO SCH ×2 (08:18→20:56)
[2020-03-10] MEDS: Furosemide 20 MG TAB PO SCH (08:18)
[2020-03-10] MEDS: Lisinopril 5 MG TAB PO SCH (08:18)
[2020-03-10] MEDS: Pancrelipase DR 12,000 1 CAP PER TUBE SCH (08:19)
[2020-03-10] MEDS: HYDROcodone/Acetaminophen 5/325 mg Tablet PO PRN ×2 (09:08→20:54)
--- NOTE | 2020-03-10 10:24 | PRG ---
DATE OF SERVICE: 03/10/2020 SUBJECTIVE: Mr. Hillman is a well-developed, well-nourished 69-year-old white male. He has had multiple abdominal problems and multiple surgeries. He has malnutrition and has difficulty healing. He had gastric outlet obstruction and was taken to surgical suite by Dr. Lema, but he had multiple enterotomies that needed to be fixed and therefore Dr. Lema just put a J-tube into his jejunum to aid with his nutrition. He is unable to eat any solids or thickened things. He is on full liquids and clear liquids. As his nutrition improves, Dr. Lema is planning on re-addressing his gastric outlet obstruction in mid April. He is here for strengthening, stamina, and continued nutrition. The patient was seen walking in the halls with therapy. He walked about 23 feet, rested and then walked about 35 feet. He states his back pain gets so bad that he cannot walk anymore. He does have an appointment with Dr. Cabezas on Saturday at 1250 hours to get a L1-2 paraspinal area injection for trigger point and any other areas that Dr. Cabezas thinks he needs to have injected. The patient states he is ready for that to happen. OBJECTIVE: VITAL SIGNS: Today reveal blood pressure this morning 123/59, pulse 90 to 93, respirations 18 to 20, O2 saturation 96% on room air, T-max 98.6. GENERAL: This is a well-developed, well-nourished, very pleasant 69-year-old white male, in no apparent distress at this time. HEENT: Reveals normocephalic and nontraumatic cranium. Pupils are equally round and reactive. Extraocular movements are intact. Nose and throat are slightly dry. NECK: Supple without masses, nodes, or bruits. CHEST: Clear to auscultation. No rales, rhonchi, wheezes are heard. HEART: Reveals a regular rate and rhythm without murmurs, gallops, or rubs. ABDOMEN: Soft, nontender without organomegaly. Normal bowel sounds are noted. No rebound or guarding is noted. : Deferred. EXTREMITIES: Reveal no clubbing, cyanosis, or edema. ASSESSMENT: 1. The patient's left arm cellulitis is clearing. He is still on vanc and Zosyn. 2. The patient is still taking his vancomycin orally for C diff. 3. Gastric outlet obstruction with J-tube feedings to continue to work well. 4. C diff, on oral vancomycin. 5. Iron deficiency anemia, for which he had iron IV infusion yesterday and q.7 days. 6. History of low back pain, for which he sees Dr. Cabezas for shots and he will see him on Saturday. 7. Generalized weakness. PLAN: 1. Continue IV vancomycin until 03/15/2020 at 1800 hours. 2. Continue IV Zosyn until 03/12 at 2100 hours. 3. Wound care for compartment syndrome in left arm. 4. Wound VAC to left arm. 5. Monitor the patient's electrolytes, iron, prealbumin weekly. 6. Awaiting prealbumin results which was 16.0 yesterday. 7. Continue physical therapy and occupational therapy. 8. See Dr. Cabezas on Saturday at 1250 hours for injections in his back, for trigger point injection L1-L2 paraspinal area and wherever else Dr. Jocelynn colón may need to be done. Job ID: [id number]
[2020-03-10] MEDS: Acetaminophen 325 MG TAB PO PRN (11:40)
[2020-03-10] MEDS: Atorvastatin Calcium 40 MG TAB PO SCH (20:55)
[2020-03-11] MEDS: Piperacillin/Tazobactam 2.25 GM in Sodium Chloride 0.9% 100 ML IVPB SCH ×4 (03:30→20:24)
[2020-03-11] MEDS: Vancomycin HCl 1 GM in Sodium Chloride 0.9% 250 ML 250 ML IVPB SCH ×2 (05:10→17:08)
[2020-03-11] MEDS: Vancomycin HCl 25 MG/ML Oral PO SCH ×2 (05:10→12:31)
[2020-03-11] MEDS: Lidocaine 4% Topical Sol 50 ML BOT TOP PRN (07:53)
[2020-03-11] MEDS: Pancrelipase DR 12,000 1 CAP PER TUBE SCH (07:54)
[2020-03-11] MEDS: Lisinopril 5 MG TAB PO SCH (07:55)
[2020-03-11] MEDS: Potassium Chloride 20 MEQ TAB PO SCH ×2 (07:56→17:07)
[2020-03-11] MEDS: Furosemide 20 MG TAB PO SCH (07:57)
[2020-03-11] MEDS: Carvedilol 25 MG TAB PO SCH ×2 (07:58→20:27)
[2020-03-11] MEDS: Sodium Bicarbonate Tab 325 MG TAB PER TUBE SCH (08:00)
[2020-03-11] MEDS: HYDROcodone/Acetaminophen 5/325 mg Tablet PO PRN ×2 (08:01→20:30)
--- NOTE | 2020-03-11 14:01 | PRG ---
DATE OF SERVICE: 03/11/2020 SUBJECTIVE: Mr. Hillman is a well-developed, well-nourished 69-year-old white male. He has had multiple abdominal problems including gastric outlet obstruction and multiple surgeries. He has significant malnutrition and has difficulty healing. His last surgery, he had multiple enterotomies that Dr. Lema sewed over and Dr. Lema put in a J-tube with a red rubber catheter. He is unable to eat any solids or anything thickened. He can have full liquids and clear liquids only. He is on J-tube feeding and now is at 90 mL an hour and then off for 7 hours from 8 o'clock in the morning until 2 or 3 o'clock in the afternoon and then he starts his feedings again. This is to let him get up and move around and to facilitate better physical therapy and occupational therapy. The patient states he is doing well. The nurse states that he likes to take [place] and he has been taking two, which knocks him out. We decided to stop taking 2 [place] and we will call them hydrocodones instead of [place] because he does not like [place]. His back pain was better with diclofenac and he is able to walk better than he has walked since he has been here. I warned him that we can give him the diclofenac, but he always has to drink it with one of his Premier protein drinks in the whole thing. He is never to take the diclofenac on an empty stomach. He has an appointment with Dr. Cabezas on Saturday at 1250 hours to get an L1-L2 paraspinal area injection for trigger point pain and also to decrease his regular pain. OBJECTIVE: VITAL SIGNS: Today reveal blood pressure this morning was 133/66, pulse 88 to 90, respirations 20, O2 saturation 97% on room air, T-max 97.1. GENERAL: This is a well-developed, well-nourished, pleasant white male, in no apparent distress at this time. HEENT: Reveals normocephalic and nontraumatic cranium. Pupils are equally round and reactive. Extraocular movements are intact. Nose and throat are slightly dry. NECK: Supple without masses, nodes, or bruits. CHEST: Clear to auscultation. No rales, no rhonchi, and no wheezes are heard. HEART: Reveals a regular rate and rhythm without murmurs, gallops, or rubs. ABDOMEN: Soft and nontender without organomegaly. Normal bowel sounds are noted in all 4 quadrants. GENITOURINARY: Deferred. EXTREMITIES: Reveal increased edema from his increased fluids. We will give him Lasix 40 mg now and may have to repeat it daily. ASSESSMENT: 1. Left arm cellulitis is much improved. 2. The patient's Clostridium difficile is gone and the oral vancomycin is being stopped. 3. Gastric outlet obstruction with jejunostomy tube feedings, continues to work well. 4. Iron deficiency anemia. The patient has iron infusions weekly. 5. Low back pain, for which he is going to see Dr. Cabezas on Saturday and will also have trigger injection. 6. Generalized weakness. PLAN: 1. Vancomycin IV. We will stop on 03/15/2020 at 1800 hours. 2. IV Zosyn. We will stop on 03/12 at 2100 hours. 3. Oral vancomycin. Stop today. 4. Continue wound VAC for wound care for the compartment syndrome in his left arm. 5. Monitor the patient's electrolytes, iron, and pre-albumin weekly. 6. The patient's last prealbumin was 16. 7. Continue physical therapy and occupational therapy. 8. Appointment with Dr. Cabezas at [address] Enio Louis will be on-call this weekend. Job ID: [id number]
[2020-03-11] MEDS ORDERED: Furosemide 40 MG TAB PO SCH (14:15)
[2020-03-11] MEDS: Acetaminophen 325 MG TAB PO PRN (15:37)
[2020-03-11] MEDS: Atorvastatin Calcium 40 MG TAB PO SCH (20:27)
[2020-03-12] MEDS: Piperacillin/Tazobactam 2.25 GM in Sodium Chloride 0.9% 100 ML IVPB SCH ×4 (02:56→20:21)
[2020-03-12] MEDS: Vancomycin HCl 1 GM in Sodium Chloride 0.9% 250 ML 250 ML IVPB SCH ×2 (05:06→17:48)
[2020-03-12] MEDS: Furosemide 20 MG TAB PO SCH (08:02)
[2020-03-12] MEDS: Carvedilol 25 MG TAB PO SCH ×2 (08:02→20:23)
[2020-03-12] MEDS: Sodium Bicarbonate Tab 325 MG TAB PER TUBE SCH (08:02)
[2020-03-12] MEDS: Lisinopril 5 MG TAB PO SCH (08:02)
[2020-03-12] MEDS: Potassium Chloride 20 MEQ TAB PO SCH ×2 (08:07→17:47)
[2020-03-12] MEDS: Pancrelipase DR 12,000 1 CAP PER TUBE SCH (08:22)
[2020-03-12] MEDS: HYDROcodone/Acetaminophen 5/325 mg Tablet PO PRN ×2 (11:50→20:20)
[2020-03-12] MEDS: Acetaminophen 325 MG TAB PO PRN (14:03)
[2020-03-12] MEDS: Atorvastatin Calcium 40 MG TAB PO SCH (20:23)
[2020-03-13] MEDS: Vancomycin HCl 1 GM in Sodium Chloride 0.9% 250 ML 250 ML IVPB SCH ×2 (05:18→18:21)
[2020-03-13] MEDS: Pancrelipase DR 12,000 1 CAP PER TUBE SCH (07:40)
[2020-03-13] MEDS: Lisinopril 5 MG TAB PO SCH (07:41)
[2020-03-13] MEDS: Furosemide 20 MG TAB PO SCH (07:41)
[2020-03-13] MEDS: Potassium Chloride 20 MEQ TAB PO SCH ×2 (07:42→17:30)
[2020-03-13] MEDS: Carvedilol 25 MG TAB PO SCH ×2 (07:43→21:30)
[2020-03-13] MEDS: Sodium Bicarbonate Tab 325 MG TAB PER TUBE SCH (07:44)
[2020-03-13] MEDS: HYDROcodone/Acetaminophen 5/325 mg Tablet PO PRN ×2 (15:01→21:46)
[2020-03-13] MEDS: Acetaminophen 325 MG TAB PO PRN (16:53)
[2020-03-13 17:35] LABS: Vancomycin, Trough 16.5 ug/mL
--- NOTE | 2020-03-13 19:38 | PRG ---
DATE OF SERVICE: 03/12/[address] Yesenia Escudero. SUBJECTIVE: The patient lying in bed, feels well. No complaints except for back pain and is going to see his pain doctor on Saturday to receive another L1-L2 paraspinal injection. His cellulitis of his left arm is improving with IV Zosyn, to stop tonight at 2100 hours. His oral vancomycin for Clostridium difficile has stopped today. He is continuing on wound VAC for the compartment syndrome on his left arm, but is preparing for discharge and hopefully will have this removed by his surgeon, but he does not know of the followup. He will continue on his vancomycin until discharge on March 15. He is eating well, but continue with jejunostomy tube feedings at night. He is having no further diarrhea. His weakness is improving. ASSESSMENT: 1. Resolving gastric outlet syndrome, jejunostomy in place. 2. Significant malnutrition, improving. 3. Deconditioning, improving. 4. Chronic lumbar spinal pain. 5. Awaiting follow up with Dr. Cabezas for another pain injection. 6. Cellulitis resolving with antibiotic to be finished on March 15 and follow up with surgeon for further wound care. Job ID: [id number]
--- NOTE | 2020-03-13 20:05 | PRG ---
DATE OF SERVICE: 03/13/2020 SUBJECTIVE: The patient is lying in bed, watching TV, he feels well, asking when he can start eating pureed and blended foods. OBJECTIVE: VITAL SIGNS: Show temperature is 96.6, pulse 87, respirations 20, O2 saturations 97% on room air, and blood pressure 142/67. LUNGS: Clear. CARDIAC: Showed regular rhythm. ABDOMEN: Soft and nontender. Jejunostomy tube in place, functioning. EXTREMITIES: Left arm shows no swelling or erythema. The wound VAC is still in place. ASSESSMENT: 1. Resolving cellulitis of left arm, on IV antibiotics until March 15. 2. Improving deconditioning and nutrition, on jejunostomy feedings and full liquid diet. 3. Persistent lower lumbar pain with pain injection be given tomorrow by Dr. Cabezas. PLAN: 1. Discuss followup with Dr. Lema and with Dr. Escudero as the patient is asking questions about when he can possibly eat more than liquids. 2. Finish antibiotics on March 15 and also follow up with Dr. Lema for removal of wound VAC. 3. Continue PT/OT. 4. Dr. Escudero will be back tonight. Job ID: [id number]
[2020-03-13] MEDS: Atorvastatin Calcium 40 MG TAB PO SCH (20:31)
[2020-03-13] MEDS: Cyclobenzaprine 10 MG TAB PO PRN (20:31)
[2020-03-14] MEDS: Vancomycin HCl 1 GM in Sodium Chloride 0.9% 250 ML 250 ML IVPB SCH ×2 (06:09→17:45)
[2020-03-14] MEDS: Lisinopril 5 MG TAB PO SCH (08:15)
[2020-03-14] MEDS: Carvedilol 25 MG TAB PO SCH ×2 (08:15→20:26)
[2020-03-14] MEDS: Potassium Chloride 20 MEQ TAB PO SCH ×2 (08:16→17:44)
[2020-03-14] MEDS: Pancrelipase DR 12,000 1 CAP PER TUBE SCH (08:17)
[2020-03-14] MEDS: Furosemide 20 MG TAB PO SCH (08:17)
[2020-03-14] MEDS: Sodium Bicarbonate Tab 325 MG TAB PER TUBE SCH (08:17)
[2020-03-14] MEDS: HYDROcodone/Acetaminophen 5/325 mg Tablet PO PRN ×2 (11:14→20:27)
--- NOTE | 2020-03-14 13:08 | PRG ---
DATE OF SERVICE: 03/14/2020 SUBJECTIVE: This is a well-developed 69-year-old white male with multiple abdominal problems including gastric outlet obstruction, multiple surgeries. He has been plagued with malnutrition, has had difficulty healing. Since the last surgery, Dr. Lema was trying to alleviate his gastric outlet obstruction, but the patient had multiple enterotomies, Dr. Lema had to over-sew. Unfortunately, he was unable to fix the gastric outlet obstruction, but he did put a J-tube in with a red rubber catheter. He is still unable to eat any solids or anything thickened. He can have full liquids or clear liquids only. He is on J-tube feeding now at 90 mL, and off for 7 hours from 8 o'clock until 2 or 3 o'clock in the afternoon, and he starts his feedings again. This is to let him get up and move around and facilitate better physical therapy and occupational therapy. The patient states he is doing well. Therapy thinks he is doing well. He finished his antibiotics tomorrow night about 8 o'clock. He is doing well, and he can be discharged to home for continued therapy. His is in today for training to make sure she understands all different things that need to happen including keeping his G-tube cleared. We will also get the patient a followup appointment with Dr. Lema in the next week. He will have lab work tomorrow. He is supposed to see Dr. Cabezas today at 1250 hours to get L1-L2 paraspinal injection for trigger point and also do his regular injection. OBJECTIVE: VITAL SIGNS: Today reveal blood pressure is 131/69, pulse 87 to 88, respirations 19 to 20, and O2 saturation 97% on room air. GENERAL: This is a well-developed, well-nourished, 69-year-old white male, in no apparent distress at this time. HEENT: Reveals normocephalic and nontraumatic cranium. Pupils are equal, round, and reactive. Extraocular movements are intact. Nose and throat are slightly dry. NECK: Supple without masses, nodes, or bruits. CHEST: Clear to auscultation. No rales, rhonchi, wheezes are heard. HEART: Reveals a regular rate and rhythm without murmurs, gallops, or rubs. ABDOMEN: Soft, obese, nontender without organomegaly. Normal bowel sounds noted in all 4 quadrants. : Deferred. EXTREMITIES: Reveal decreased edema in his extremities. ASSESSMENT: 1. Left arm cellulitis. He will finish his antibiotics tomorrow night. 2. Clostridium difficile has gone, and oral vancomycin has been stopped. 3. Gastric outlet obstruction with J-tube feedings. He continues to work well. 4. Iron deficiency anemia. He will have iron infusions weekly. 5. Low back pain, for which he is going to see Dr. Cabezas today at 1250 hours for trigger point injection. 6. Generalized weakness. PLAN: 1. Zosyn was stopped on 03/12. 2. Vancomycin IV will stop tomorrow night at 1800 hours. 3. Oral vancomycin has been stopped. 4. Continue wound VAC to left forearm. 5. Monitor the patient's electrolytes, iron, and pre-albumin weekly, that will be done tomorrow. 6. Continue PT and OT. 7. Most likely, we will discharge on Saturday. Job ID: [id number]
[2020-03-14] MEDS: Acetaminophen 325 MG TAB PO PRN (17:44)
[2020-03-14] MEDS: Atorvastatin Calcium 40 MG TAB PO SCH (20:26)
[2020-03-15] MEDS: Vancomycin HCl 1 GM in Sodium Chloride 0.9% 250 ML 250 ML IVPB SCH ×2 (05:35→17:11)
[2020-03-15 05:53] LABS: Anisocytosis SLIGHT = 6-15 cells (100X) (0-5/hpf); Hemoglobin 9.1 g/dL (14.0-18.0); Hypochromia SLIGHT = 6-15 cells (100X) (0-5/hpf); MDiff Complete? YES; Mean Corpuscular HGB CONC 30.4 g/dL (32.0-36.0); Mean Corpuscular Hemoglobin 30.3 pg (27.0-31.0); Mean Corpuscular Volume 99.7 fL (78.0-98.0); Mean Platelet Volume 6.3 fL (7.4-10.4); Ovalocytes SLIGHT = 2-5 cells (100X) (0-1/hpf); Platelet Count 191 thou/uL (130-400); Platelet Morphology Comment Appears Adequate; RBC Distribution Width 18.9 % (11.5-14.5); Red Blood Cell (RBC) Count 2.99 mill/uL (4.70-6.10)
[2020-03-15 05:54] LABS: ALT (SGPT) 39 U/L (8-55); AST (SGOT) 25 U/L (5-34); Albumin 2.7 g/dL (3.4-4.8); Alkaline Phosphatase 92 U/L (40-110); Anion Gap 13 mmol/L (10-20); BUN (Urea Nitrogen) 19 mg/dL (8.4-25.7); Bilirubin, Total 0.2 mg/dL (0.2-1.2); Calc. Creatinine Clearance 154 mL/min (70-130); Calcium 8.2 mg/dL (7.8-10.44); Carbon Dioxide 23 mmol/L (23-31); Chloride 103 mmol/L (98-107); Estimated GFR-MDRD Greater than 90; Globulin 3.2 g/dL (2.4-3.5); Glucose 110 mg/dL (83-110); Potassium 4.6 mmol/L (3.5-5.1); Protein, Total 5.9 g/dL (5.8-8.1); Sodium 134 mmol/L (136-145)
[2020-03-15] MEDS: Lisinopril 5 MG TAB PO SCH (08:15)
[2020-03-15] MEDS: Sodium Bicarbonate Tab 325 MG TAB PER TUBE SCH (08:15)
[2020-03-15] MEDS: Potassium Chloride 20 MEQ TAB PO SCH ×2 (08:15→17:11)
[2020-03-15] MEDS: Pancrelipase DR 12,000 1 CAP PER TUBE SCH (08:15)
[2020-03-15] MEDS: Furosemide 20 MG TAB PO SCH (08:16)
[2020-03-15] MEDS: Carvedilol 25 MG TAB PO SCH ×2 (08:16→21:05)
[2020-03-15] MEDS ORDERED: Furosemide 80 MG TAB PO SCH (09:45)
[2020-03-15 11:59] LABS: Iron 75 ug/dL (65-175); Iron Binding Capacity, Total 200 mcg/dL (261-462)
[2020-03-15] MEDS: HYDROcodone/Acetaminophen 5/325 mg Tablet PO PRN (12:58)
[2020-03-15] MEDS: Cyclobenzaprine 10 MG TAB PO PRN (21:05)
[2020-03-15] MEDS: Acetaminophen 325 MG TAB PO PRN (21:05)
[2020-03-15] MEDS: Atorvastatin Calcium 40 MG TAB PO SCH (21:05)
[2020-03-16 07:52] VITALS: BP 157/72; TEMP 98.4
[2020-03-16] MEDS ORDERED: Vancomycin HCl 1 GM in Sodium Chloride 0.9% 250 ML 250 ML IVPB SCH (08:00)
[2020-03-16] MEDS ORDERED: Furosemide 40 MG TAB PO SCH (09:00)
[2020-03-16] MEDS: Potassium Chloride 20 MEQ TAB PO SCH (09:06)
[2020-03-16] MEDS: Sodium Bicarbonate Tab 325 MG TAB PER TUBE SCH (09:08)
[2020-03-16] MEDS: Lisinopril 5 MG TAB PO SCH (09:08)
[2020-03-16] MEDS: Pancrelipase DR 12,000 1 CAP PER TUBE SCH (09:08)
[2020-03-16] MEDS: Carvedilol 25 MG TAB PO SCH (09:09)
[2020-03-16] MEDS: Acetaminophen 325 MG TAB PO PRN (11:43)
[2020-03-16] MEDS: Iron, Sodium Ferric Gluconate 250 MG in Sodium Chloride 0.9% 100 ML IVPB SCH (12:47)
--- NOTE | 2020-03-17 12:50 | DIS ---
DATE OF ADMISSION: 02/24/2020 DATE OF DISCHARGE: 03/16/2020 SUBJECTIVE: Mr. Hillman is a well-developed, well-nourished 69-year-old very unfortunate white male, who has had multiple abdominal problems with gastric outlet syndrome and multiple surgeries. He has been plagued with now malnutrition, has had difficulty healing. His last surgery by Dr. Lema, they were trying to alleviate his gastric outlet obstruction, but he had significant multiple enterotomies. Dr. Lema had to oversew them and then was rushed because the patient was having significant problems during surgery. He was able to put a J-tube in with a red rubber catheter. Since then, we have tried to stay away from any further surgeries and basically give him clear liquids along with full liquids. He is not to have anything thickened because it may clog up his tube or his gastric obstruction. He is now on J-tube feedings at 90 mL off for 7 hours between 8:00 and 2:00 or 3:00 in the afternoon. At that time, he gets his exercises. Then, he has continuous feedings from then until the next morning. This does let him get up and move around and facilitate better physical therapy and occupational therapy. The patient states he is doing well and states he is ready to go home. He states both he and his were trained in how to do his J-tube feedings. I told him not to put anything thicker than full liquids down his tube. He thought about thinning out his mashed potatoes real thin and swallowing that, but I told him that he would have to check with Dr. Lema about that. We will see if we get an appoint with Dr. Lema, and either see Dr. Lema or myself next week, and then the other doctor the following week. DISCHARGE MEDICATIONS: Include the following; 1. Atorvastatin 80 mg daily at bedtime. 2. Coreg, which is carvedilol 25 mg twice a day. 3. Diclofenac 75 mg b.i.d., but only takes p.r.n. and always with a container of some type of protein shake. 4. Diphenhydramine, which is Benadryl 25 mg q.6 p.r.n. itching. 5. Lasix 40 mg daily. 6. Xpkvip-ydwxchif-tfjtitl, which is Catherine QUIROS 12,000 units one capsule per day per his tube. 7. Sodium bicarb 650 mg per tube per protocol p.r.n. 8. Lisinopril 5 mg daily. 9. Ondansetron, which is Zofran, 4 mg q.6 hours p.r.n. nausea and vomiting. 10. Hydrocodone 5/325, one pill q.6 to q.8 hours p.r.n. severe pain. The patient finished his vancomycin this morning. OBJECTIVE: VITAL SIGNS: This morning reveal blood pressure 157/72, pulse 85, respirations 18, O2 saturation 97% on room air, T-max 98.4. GENERAL: This is a well-developed, well-nourished, pleasant 69-year-old white male, who is actually doing very well and is excited about going home. He has not been home in several months. HEENT: Normocephalic and nontraumatic cranium. Pupils equal, round, and reactive. Extraocular movements are intact. Nose and throat are slightly dry, but clear. NECK: Supple without masses, nodes, or bruits. CHEST: Clear to auscultation. No rales, no rhonchi, no wheezes are heard. HEART: Reveals a regular rate and rhythm without murmurs, gallops, or rubs. ABDOMEN: Soft, obese, nontender without organomegaly. Normal bowel sounds are noted in all 4 quadrants. The patient has one small opening from his previous incision, which is fairly well healed. : Deferred. J-tube is noted in the left upper quadrant, which has a two 3-0 nylon sutures holding it in place. EXTREMITIES: Reveal 2 to 3+ edema, but is improved and not real tight. We have increased his Lasix to 40 mg and he is restricted to 2000 orally per day. ASSESSMENT: 1. Left arm cellulitis, finished his antibiotics last night. 2. Clostridium difficile is gone. The patient has finished his oral vancomycin. 3. Gastric outlet syndrome with J-tube feeding. He is to continue his feedings at 90 mL an hour, to stop in the morning at 8:00 and then continue again at 2:00 or 3:00 all night long. 4. Iron deficiency anemia. He will have an iron infusion today. 5. The patient did have a low back pain injection with Dr. Cabezas on this past Rafa and he states it is working really well. 6. Generalized weakness. 7. Malnutrition. PLAN: 1. The patient has finished all of his antibiotics and will need no more antibiotics. 2. Continue wound VAC on left arm to be followed up with Home Health, which is [facility] and Dr. Lema. 3. Continue to monitor the patient's electrolytes, iron, and pre-albumin weekly with a CBC, comp met, pre albumin, and iron studies. 4. Continue physical therapy and occupational therapy outpatient through [facility]. 5. The patient will be discharged this afternoon after the patient finishes his iron infusions. 6. The patient will see either Dr. Lema or me next week. 7. The patient will see the doctor, that he does not see this week, the following week in their office. 8. The patient is ready for discharge after he receives his iron today. Job ID: [id number]
--- NOTE | 2020-03-18 12:15 | PQF ---
CLINICAL DOCUMENTATION CLARIFICATION FORM: Dear : Daniel Escudero MD Date / Time:___03/18/2020__ Please exercise your independent, professional judgment in responding to the clarification form. Clinical indicators are provided on the bottom of this form for your review Please check appropriate box(es): [ ] Mild Protein Calorie Malnutrition [ ] Moderate Protein Calorie Malnutrition [ X ] Severe Protein Calorie Malnutrition [ ] Unspecified Protein Calorie Malnutrition [ ] Other Malnutrition (please specify) __ [ ] Unable to determine Physician Signature: Jr MD SAUL Lakhani Date/Time: For continuity of documentation, please document condition throughout progress notes and discharge summary. Thank You. To be completed by CDI/Coding staff for physician review: Present Clinical Indicators - Signs / Symptoms / Labs Results and Location in Medical Record [x ] Malnutrition DS, 03/16, Daniel Escudero MD w [ x ] w Extremities: Reveal 2 to 3+ edema w DS, 03/16, Daniel Escudero MD [x ] BMI: 28.1 Vital Signs, 03/14 [x ] Iron deficiency anemia Progress note, 03/14, Daniel Escudero MD [x ] Generalized weakness Progress note, 03/14, Daniel Escudero MD [x ] Total protein: 5.6L on 03/09, Albumin:2.5L on 03/09 Laboratory report Present Risk Factors Results and Location in Medical Record [x ] Gastric outlet syndrome and multiple surgeries DS, 03/16, Daniel Escudero MD [x ] Left arm cellulitis Progress note, 03/14, Daniel Escudero MD Present Treatments Results and Location in Medical Record [x ] J tube feedings DS, 03/16, Daniel Escudero MD [x ] Primier protein shakes from home FNS assessment, 03/11 [x ] Danish BID FNS assessment, 03/11 CDS/Waste Reduction Coordinator Signature: Maritza Grant Phone #: [phone] Date/Time:03/18/2020 Moderate Malnutrition (in acute illness) ? Energy Intake: <75% of estimated energy requirement for > 7 days ? Weight Loss: 1-2%/1 week; 5%/ 1 month; 7.5%/3 months ? Other: mild body fat loss; mild muscle mass loss; mild fluid accumulation; Severe Malnutrition (in acute illness) ? Energy Intake: ? 50% of estimated energy requirement for ? 5 days ? Weight Loss: >2%/1 week; >5%/1 month; >7.5%/3 months ? Other: moderate body fat loss; moderate muscle mass loss; moderate- severe fluid accumulation; measurably reduced fishing rod trimmer strength Moderate Malnutrition (in chronic illness) ? Energy Intake: <75% of estimated energy requirement for ?1 month ? Weight Loss: 5%/1 month; 7.5%/3 months; 10%/6 months; 20%/1 year ? Other: mild body fat loss; mild muscle mass loss; mild fluid accumulation Severe Malnutrition (in chronic illness) ? Energy Intake: ?75% of estimated energy requirement for ?1 month ? Weight Loss: >5%/1 month; >7.5%/3 months; >10%/6 months; >20%/1 year ? Other: severe body fat loss; severe muscle mass loss; severe fluid accumulation; measurably reduced fishing rod trimmer strength This is a permanent part of the Medical Record [facility]
== END 2020-03-16 16:05 | disposition home health service (06) | DRG 314 ==
LOC: NAV ACUTE 20:56
PROVIDERS: ADMIT Family Medicine; ATTEND Family Medicine
DX: T80.211A Bloodstream infection due to central venous catheter, initial encounter (principal); A41.1 Sepsis due to other specified staphylococcus; E43 Unspecified severe protein-calorie malnutrition; M79.A12 Nontraumatic compartment syndrome of left upper extremity; A04.72 Enterocolitis due to Clostridium difficile, not specified as recurrent; L03.114 Cellulitis of left upper limb; K31.1 Adult hypertrophic pyloric stenosis; I10 Essential (primary) hypertension; I25.10 Atherosclerotic heart disease of native coronary artery without angina pectoris; G62.9 Polyneuropathy, unspecified; D50.9 Iron deficiency anemia, unspecified; R53.81 Other malaise; Z68.28 Body mass index [BMI] 28.0-28.9, adult
CPT/HCPCS: 36415; 36416; 80053; 80202; 82274; 83540; 83550; 83630; 83880; 84134; 85007; 85025; 85027; 87040; 87045; 87046; 87081; 87324; 87328; 87329; 87427; 87449; 87493; 97602; J1650; J2001; J2543; J2916; J3370; J3490; J7050; Q0162; Q0163

== ENCOUNTER 2021-02-08 11:59 | Outpatient (CLI) | payer MEDICARE | END 2021-02-08 12:00 | disposition home or self-care (01) | LOC: NAV RAD 11:59 | PROVIDERS: ATTEND Family Medicine | DX: M79.644 Pain in right finger(s) (principal); M77.8 Other enthesopathies, not elsewhere classified; M19.041 Primary osteoarthritis, right hand ==

== ENCOUNTER 2021-10-18 14:06 | Outpatient (CLI) | payer MEDICARE | END 2021-10-18 14:07 | disposition home or self-care (01) | LOC: NAV RAD 14:06 | PROVIDERS: ATTEND Family Medicine | DX: M25.511 Pain in right shoulder (principal); G89.29 Other chronic pain ==

== ENCOUNTER 2021-10-25 09:58 | Outpatient (CLI) | payer MEDICARE | END 2021-10-25 09:59 | disposition home or self-care (01) | LOC: NAV RAD 09:58 | PROVIDERS: ATTEND Family Medicine | DX: M25.511 Pain in right shoulder (principal) ==

== ENCOUNTER 2024-06-04 06:40 | Emergency (ER) | payer MEDICARE ==
[2024-06-04] MEDS ORDERED: Ondansetron PF 4 MG/2 ML Vial ONE (07:09)
[2024-06-04 07:16] LABS: #Basophils 0.1 thou/uL (0.0-0.2); #Eosinophils 0.3 thou/uL (0.0-0.7); #Lymphocytes 1.2 thou/uL (1.20-3.40); #Monocytes 0.5 thou/uL (0.11-0.59); %Basophils 1.1 % (0.0-1.0); %Eosinophils 4.3 % (0.0-10.0); %Lymphocytes 19.6 % (21.0-51.0); %Monocytes 8.6 % (0.0-10.0); %Neutrophils 66.4 % (42.0-75.0); Hematocrit 38.4 % (42.0-52.0); Hemoglobin 13.6 g/dL (14.0-18.0); Mean Corpuscular HGB CONC 35.4 g/dL (32.0-36.0); Mean Corpuscular Hemoglobin 33.8 pg (27.0-31.0); Mean Corpuscular Volume 95.4 fl (78.0-98.0); Mean Platelet Volume 6.2 fL (7.4-10.4); Platelet Count 237 10x3/uL (130-400); RBC Distribution Width 12.4 % (11.5-14.5); Red Blood Cell (RBC) Count 4.03 mill/uL (4.70-6.10)
[2024-06-04 07:17] LABS: INR-International Normal Ratio 1.2; Prothrombin Time 15.6 sec (12.0-14.7)
[2024-06-04 07:26] LABS: Troponin I Less than 0.010 ng/mL (< 0.028)
[2024-06-04 07:29] LABS: ALT (SGPT) 18 U/L (8-55); AST (SGOT) 19 U/L (5-34); Alkaline Phosphatase 60 U/L (40-110); Anion Gap 14 mmol/L (10-20); BUN (Urea Nitrogen) 10 mg/dL (8.4-25.7); Calc. Creatinine Clearance 0 mL/min (70-130); Calcium 9.2 mg/dL (7.8-10.44); Carbon Dioxide 25 mmol/L (23-31); Chloride 95 mmol/L (98-107); Estimated GFR 92; Globulin 3.3 g/dL (2.4-3.5); Glucose 102 mg/dL (83-110); Lipase 17 U/L (8-78); Potassium 3.7 mmol/L (3.5-5.1); Protein, Total 7.3 g/dL (5.8-8.1); Sodium 130 mmol/L (136-145)
[2024-06-04] MEDS ORDERED: Furosemide 40 MG (4 mL) VIAL ONE (08:24)
[2024-06-04] MEDS ORDERED: Nitroglycerin 2% Ointment 1 INCH/1 GM Packet ONE (08:24)
[2024-06-04] MEDS ORDERED: Acetaminophen 325 MG TAB ONE (08:48)
[2024-06-04 09:40] LABS: Troponin I Less than 0.010 ng/mL (< 0.028)
== END 2024-06-04 10:19 | disposition home or self-care (01) ==
LOC: NAV ERS 06:40
DX: I16.0 Hypertensive urgency (principal); I10 Essential (primary) hypertension; E78.5 Hyperlipidemia, unspecified; Z79.899 Other long term (current) drug therapy
CPT/HCPCS: 71046; 80053; 83690; 83880; 84484 ×2; 85025; 85610; J1940; J2405; 96374